=== PATIENT | male | born 1930 | race Hispanic/Latino ===

== ENCOUNTER 2017-08-31 14:57 | Emergency (ER) | payer MEDICARE ==
[2017-08-31 15:19] VITALS: BMI 28.1
--- NOTE | 2017-08-31 15:30 | ED PDOC ---
Arrival/HPI - General Historian: Patient - General Chief Complaint: Altered Mental Status Time Seen by Provider: 08/31/17 15:25 - History of Present Illness Narrative History of Present Illness (Text): 08/31/17 15:27 85-year-old male presents brought in by ambulance after being found walking on the streets disoriented. Patient is alert, but appears confused and is unable to answer any questions in the emergency room. (Effie Dowell) Past Medical History - Provider Review Nursing Documentation Reviewed: Yes - Travel History Have you recently traveled outside [place] w/in the past 3 mons?: No - Tetanus Immunization Tetanus Immunization: Unknown Family/Social History - Physician Review Nursing Documentation Reviewed: Yes Family/Social History: Unknown Family HX Allergies/Home Meds Allergies/Adverse Reactions: Allergies No Known Allergies Allergy (Verified 09/01/17 07:44) Review of Systems - Review of Systems Systems not reviewed;Unavailable: Altered Mental Status Physical Exam Vital Signs Reviewed: Yes Temperature: Febrile Blood Pressure: Normal Pulse: Tachycardic Respiratory Rate: Normal Appearance: Positive for: Well-Appearing, Non-Toxic, Comfortable Pain Distress: None Mental Status: Positive for: Confused - Systems Exam Head: Present: Abrasion (abrasion to scalp) Pupils: Present: PERRL Extroacular Muscles: Present: EOMI Conjunctiva: Present: Normal Mouth: Present: Moist Mucous Membranes Neck: Present: Normal Range of Motion Respiratory/Chest: Present: Clear to Auscultation, Good Air Exchange. No: Respiratory Distress, Accessory Muscle Use Cardiovascular: Present: Regular Rate and Rhythm, Normal S1, S2. No: Murmurs Abdomen: Present: Normal Bowel Sounds. No: Tenderness, Distention, Peritoneal Signs, Rebound, Guarding Upper Extremity: Present: Normal ROM Lower Extremity: Present: Normal ROM Skin: Present: Warm, Dry Psychiatric: Present: Other (confused) Vital Signs Temp Pulse Resp BP Pulse Ox 09/01/17 06:41 99.6 F 74 18 107/40 L 95 09/01/17 05:34 62 18 122/42 L 98 09/01/17 01:55 60 18 110/42 L 98 09/01/17 00:02 63 18 114/50 L 97 08/31/17 20:58 68 18 108/49 L 98 08/31/17 19:26 89 18 133/72 96 08/31/17 17:35 100.9 F H 104 H 21 125/45 L 17 L 08/31/17 16:16 91 H 18 142/66 97 08/31/17 14:57 101.3 F H 99 H 18 143/66 97 Medical Decision Making ED Course and Treatment: 08/31/17 15:31 85-year-old male with altered mental status with fever 101.3 rectally found wandering on the streets. Tylenol given rectally. CBC wnl CMP wnl trop wnl bnp wnl lactate; 11.1 EKG shows normal sinus rhythm at [address] elevations normal axis and QTC 438 cxr; FINDINGS: LUNGS: Incompletely characterized infiltrates and perhaps volume loss left lung. PLEURA: Pleural thickening, scarring identified left pleural space only. CARDIOVASCULAR: No radiographic findings to suggest acute or significant cardiovascular disease. OSSEOUS STRUCTURES: No significant abnormalities. VISUALIZED UPPER ABDOMEN: Normal. OTHER FINDINGS: None. IMPRESSION: Left lower lobe infiltrate, of loculated pleural fluid or pleural thickening left pleural space only. case discussed with dr. bolaños; will start cefapime 2g IV and zithromax IV head ct; FINDINGS: HEMORRHAGE: No intracranial hemorrhage. BRAIN: No mass effect or edema. Cortical atrophy, periventricular small vessel disease VENTRICLES: Unremarkable. No hydrocephalus. CALVARIUM: Unremarkable. PARANASAL SINUSES: Unremarkable as visualized. No significant inflammatory changes. MASTOID AIR CELLS: Unremarkable as visualized. No inflammatory changes. OTHER FINDINGS: None. IMPRESSION: No acute intracranial abnormalities. No significant findings to account for the clinical presentation. UA: wnl 08/31/17 16:59 patients arrived at hospital; states he was with her this afternoon and then he disappeared. pt states she went looking for him but was unable to find him. name verified. i spoke with patients daughter (who is a physician)on the phone; she states 3 years ago the patient was diagnosed with dementia but never completed the work up. She states that the rest of her family is in denial about the dementia. dr. bolaños discussed the case with dr. rizzo; he would like the patient to be admitted to the hospitalist service. impression; AMS, pneumonia admit to remote tele. (Effie Dowell) 09/01/17 10:43 Patient presented to ED as "Chris Emerson" reportedly as per EMS "wandering the streets appearing confused". On initial exam, patient was not speaking to me or answering questions, although he was following commands and moving all extremities well with no signs of unstable trauma. He had no identification on his person, and he did not communicate his name or any family contacts with multiple attempts at questioning and obtaining history. Patient noted to be febrile, however bp stable, no tachycardia, no respiratory distress. Exam not consistent with sepsis. Abnormal cxr suggestive of pneumonia , however no respiratory distress. IV antibiotics initiated with close monitoring while administering as patient unable to verbalize allergies. Subsequently family presented and identified patient and further history obtained. There was also telephone communication with family. Patient at this time had been admitted to hospitalist service as he was unable to identify himself or provide PMD information. Subsequently we were able to communicate with his PMD who was agreeable to maintain admission under hospitalist service. Family updated. On re-exam, no focal neuro deficits noted although patient at time will not answer questions to specific staff members and family. Will admit for eval of fever, abnormal cxr, neuro checks. (Dora Bolaños ) - Lab Interpretations Lab Results: 08/31/17 16:15 08/31/17 16:15 Lab Results 08/31/17 16:15: Alcohol, Quantitative < 10 08/31/17 16:15: Salicylates < 1 L, Acetaminophen < 10.0 L 08/31/17 16:15: WBC 7.3, RBC 4.71, Hgb 13.5 L, Hct 41.5 L, MCV 88.1, MCH 28.7, MCHC 32.5, RDW 12.8, Plt Count 247, MPV 9.6, Gran % 82.6 H, Lymph % (Auto) 9.7 L , [place] % (Auto) 6.8 H, Eos % (Auto) 0.4 L, Baso % (Auto) 0.5, Gran # 6.02, Lymph # 0.7 L, [place] # 0.5, Eos # 0.0, Baso # 0.04 08/31/17 16:15: Sodium 140, Chloride 105, Potassium 4.3, Carbon Dioxide 27, Anion Gap 12, BUN 20, Creatinine 1.0, Est GFR ( Amer) > 60, Est GFR (Non- Af Amer) > 60, Random Glucose 117 H, Calcium 9.2, Total Bilirubin 0.3, AST 39, ALT 42, Alkaline Phosphatase 79, Lactate Dehydrogenase 417, Total Creatine Kinase 84, Troponin I < 0.01, NT-Pro-B Natriuret Pep 272, Total Protein 7.1, Albumin 4.1, Globulin 3.0, Albumin/Globulin Ratio 1.3 08/31/17 16:15: pO2 32, VBG pH 7.40, VBG pCO2 48.0, VBG HCO3 29.7 H, VBG Total CO2 31.2 H, VBG O2 Sat (Calc) 69.0 H, VBG Base Excess 4.0 H, VBG Potassium 4.3, Sodium 139.0, Chloride 106.0, Glucose 121 H, Lactate 1.1, FiO2 21.0, Venous Blood Potassium 4.3 08/31/17 16:02: Urine Color Yellow, Urine Appearance Clear, Urine pH 6.5, Ur Specific [place] >= 1.030, Urine Protein 100 H, Urine Glucose (UA) Negative, Urine Ketones Trace H, Urine Blood Negative, Urine Nitrate Negative, Urine Bilirubin Negative, Urine Urobilinogen 1.0 H, Ur Leukocyte Esterase Negative, Urine RBC Negative, Urine WBC 0 - 2, Ur Epithelial Cells 0 - 2 - RAD Interpretation Radiology Orders: 08/31/17 15:25 CHEST PORTABLE [RAD] Stat 08/31/17 15:26 HEAD W/O CONTRAST [CT] Stat - Medication Orders Current Medication Orders: Heparin Sodium (Porcine) (Heparin) 5,000 units SC Q12 [facility] PRN Reason: Protocol Last Admin: 09/01/17 01:01 Dose: Not Given Non-Admin Reason: Patient Refused Ceftriaxone Sodium (Rocephin 2 Gm Ivpb) 2 gm in 100 mls @ 100 mls/hr IVPB DAILY [facility] PRN Reason: Protocol Azithromycin (Zithromax 500mg In Ns) 500 mg in 250 mls @ 167 mls/hr IVPB DAILY [facility] PRN Reason: Protocol Pantoprazole Sodium (Protonix Inj) 40 mg IVP DAILY [facility] Last Admin: 08/31/17 17:56 Dose: 40 mg IVP Administration Document 08/31/17 17:56 SRE (Rec: 08/31/17 17:56 [id number] [id number]) Charges for Administration # of IVP Administrations 1 Discontinued Medications Acetaminophen (Tylenol 650 Mg Supp) 650 mg STAT STA Stop: 08/31/17 16:38 Last Admin: 08/31/17 17:05 Dose: 650 mg MAR Pain/Vitals Document 08/31/17 17:05 SRE (Rec: 08/31/17 17:05 SRE [id number]) Pain Reassessment Is This A Pain ReAssessment? Yes Sleep Is patient sleeping during reassessment? No Presence of Pain Presence of Pain Yes Pain Scale Used Pain Scale Used Numeric Cefepime HCl (Maxipime 2gm) 2 gm in 100 mls @ 100 mls/hr IVPB STAT [facility] PRN Reason: Protocol Stop: 08/31/17 17:27 Last Admin: 08/31/17 17:04 Dose: 100 mls/hr eMAR Start Stop Document 08/31/17 17:04 SRE (Rec: 08/31/17 17:04 SRE [id number]) Intravenous Solution Start Date 08/31/17 Start Time 16:50 End Date 08/31/17 End time 17:50 Total Infusion Time 60 Azithromycin (Zithromax 500mg In Ns) 500 mg in 250 mls @ 166.667 mls/hr IVPB STAT [facility]A PRN Reason: Protocol Stop: 08/31/17 18:30 Last Admin: 08/31/17 17:55 Dose: 166.667 mls/hr eMAR Start Stop Document 08/31/17 17:55 SRE (Rec: 08/31/17 17:56 SRE [id number]) Intravenous Solution Start Date 08/31/17 Start Time 17:55 End Date 08/31/17 End time 19:30 Total Infusion Time 95 Disposition/Present on Arrival - Present on Arrival Any Indicators Present on Arrival: No History of DVT/PE: No History of Uncontrolled Diabetes: No Urinary Catheter: No History of Decub. Ulcer: No - Disposition Have Diagnosis and Disposition been Completed?: Yes Disposition Time: 17:25 Patient Plan: Admission - Disposition Diagnosis: Pneumonia, Altered mental status Disposition: HOSPITALIZED Patient Problems: Current Active Problems Problem Status Onset Altered mental status Acute Pneumonia Acute Condition: FAIR
--- NOTE | 2017-08-31 16:12 | RAD ---
HISTORY: Altered mental status. Portable study 15:30. COMPARISON: No prior. FINDINGS: LUNGS: Incompletely characterized infiltrates and perhaps volume loss left lung. PLEURA: Pleural thickening, scarring identified left pleural space only. CARDIOVASCULAR: No radiographic findings to suggest acute or significant cardiovascular disease. OSSEOUS STRUCTURES: No significant abnormalities. VISUALIZED UPPER ABDOMEN: Normal. OTHER FINDINGS: None. IMPRESSION: Left lower lobe infiltrate, of loculated pleural fluid or pleural thickening left pleural space only.
[2017-08-31 16:17] LABS: PH,URINE 6.5 (4.7-8.0); URINE BILIRUBIN NEGATIVE (NEGATIVE); URINE BLOOD NEGATIVE (NEGATIVE); URINE GLUCOSE (UA) NEGATIVE (NEGATIVE); URINE LEUKOCYTE ESTERASE NEGATIVE Leu/uL (NEGATIVE); URINE NITRATE NEGATIVE (NEGATIVE); URINE PROTEIN 100 mg/dL (<30 mg/dL)
[2017-08-31 16:19] LABS: URINE APPEARANCE CLEAR (CLEAR); URINE COLOR YELLOW (YELLOW)
[2017-08-31] MEDS ORDERED: Cefepime IV 2 gm in NS 2 GM/100 ML BAG IVPB STA (16:28)
[2017-08-31 16:30] LABS: URINE EPITHELIAL CELLS 0 - 2 /hpf (0-5); URINE RBC NEGATIVE /hpf (0-2); URINE WBC 0 - 2 /hpf (0-6)
[2017-08-31 16:35] LABS: VENOUS BLOOD GAS PO2 32 mm/Hg (30-55)
[2017-08-31 16:39] LABS: BASO # 0.04 K/mm3 (0.0-2.0); BASO % 0.5 % (0.0-3.0); EOS % 0.4 % (1.5-5.0); GRAN # 6.02 (1.4-6.5); GRAN % 82.6 % (50.0-68.0); HEMOGLOBIN 13.5 g/dL (14.0-18.0); LYMPH # 0.7 (1.2-3.4); LYMPH % 9.7 % (22.0-35.0); MEAN CELL VOLUME 88.1 fl (80.0-105.0); MEAN CORPUSCULAR HEMOGLOBIN 28.7 pg (25.0-35.0); MEAN CORPUSCULAR HGB CONC 32.5 g/dl (31.0-37.0); MEAN PLATELET VOLUME 9.6 fl (7.0-11.0); MONO # 0.5 (0.1-0.6); MONO % 6.8 % (1.0-6.0); RBC 4.71 10^6/uL (3.5-6.1); RED CELL DISTRIBUTION WIDTH 12.8 % (11.5-14.5); WHITE BLOOD COUNT 7.3 10^3/ul (4.5-11.0)
[2017-08-31 16:46] LABS: ALB/GLOB RATIO 1.3 (1.1-1.8); ALBUMIN 4.1 g/dL (3.0-4.8); ALT/SGPT 42 U/L (7-56); AST/SGOT 39 U/L (17-59); BLOOD UREA NITROGEN 20 mg/dL (7-21); CALCIUM 9.2 mg/dL (8.4-10.5); GFR AFRICAN-AMERICAN > 60; GFR NON-AFRICAN AMERICAN > 60
[2017-08-31 16:47] LABS: ACETAMINOPHEN < 10.0 ug/ml (10.0-20.0); SALICYLATE < 1 mg/dL (2.0-20.0)
[2017-08-31 16:58] LABS: B-TYPE NATRIURETIC PEPTIDE 272 pg/mL (0-450); TROPONIN I < 0.01 ng/mL
--- NOTE | 2017-08-31 16:59 | CT ---
PROCEDURE: CT HEAD WITHOUT CONTRAST. HISTORY: Altered mental status COMPARISON: None available. TECHNIQUE: Axial computed tomography images were obtained through the head/brain without intravenous contrast. Radiation dose: Total exam DLP = 922.55 mGy-cm. This CT exam was performed using one or more of the following dose reduction techniques: Automated exposure control, adjustment of the mA and/or kV according to patient size, and/or use of iterative reconstruction technique. FINDINGS: HEMORRHAGE: No intracranial hemorrhage. BRAIN: No mass effect or edema. Cortical atrophy, periventricular small vessel disease VENTRICLES: Unremarkable. No hydrocephalus. CALVARIUM: Unremarkable. PARANASAL SINUSES: Unremarkable as visualized. No significant inflammatory changes. MASTOID AIR CELLS: Unremarkable as visualized. No inflammatory changes. OTHER FINDINGS: None. IMPRESSION: No acute intracranial abnormalities. No significant findings to account for the clinical presentation.
[2017-08-31] MEDS ORDERED: Azithromycin 500MG/NS 250ml 500 MG/250 ML BAG IVPB STA (17:01)
[2017-08-31 19:27] VITALS: RESP 18
[2017-09-01 06:04] LABS: ALB/GLOB RATIO 1.3 (1.1-1.8); ALBUMIN 3.7 g/dL (3.0-4.8); ALT/SGPT 41 U/L (7-56); AST/SGOT 34 U/L (17-59); BLOOD UREA NITROGEN 17 mg/dL (7-21); CALCIUM 9.1 mg/dL (8.4-10.5); GFR AFRICAN-AMERICAN > 60; GFR NON-AFRICAN AMERICAN > 60; MAGNESIUM 2.1 mg/dL (1.7-2.2)
[2017-09-01 06:12] LABS: BASO # 0.03 K/mm3 (0.0-2.0); BASO % 0.5 % (0.0-3.0); EOS # 0.1 (0.0-0.7); EOS % 1.6 % (1.5-5.0); GRAN # 5.02 (1.4-6.5); GRAN % 78.9 % (50.0-68.0); HEMOGLOBIN 13.5 g/dL (14.0-18.0); LYMPH # 0.5 (1.2-3.4); LYMPH % 8.3 % (22.0-35.0); MEAN CELL VOLUME 88.6 fl (80.0-105.0); MEAN CORPUSCULAR HEMOGLOBIN 28.6 pg (25.0-35.0); MEAN CORPUSCULAR HGB CONC 32.3 g/dl (31.0-37.0); MEAN PLATELET VOLUME 9.8 fl (7.0-11.0); MONO # 0.7 (0.1-0.6); MONO % 10.7 % (1.0-6.0); RBC 4.72 10^6/uL (3.5-6.1); WHITE BLOOD COUNT 6.4 10^3/ul (4.5-11.0)
[2017-09-01 06:42] VITALS: BP 107/40; PULSE 74; TEMP 99.6; O2SAT 95
--- NOTE | 2017-09-01 07:17 | CP.PCM.HP ---
<Silvia Canas - Last Filed: 09/01/17 06:57> History of Present Illness - History of Present Illness History of Present Illness: H&P for Dr Kimble: CC:disorientation 85-year-old male with no significant PMH, presents brought in by ambulance after being found walking on the streets disoriented. Patient is alert, but appears confused and is unable to answer any questions in the emergency room. at bedside, most HPI obtained from her. She states that she and her had a fight in the afternoon while at [facility]. And the patient walked away after that. She states that she has been noticing that pt has been have episodes of memory loss for past few weeks, and thinks he is having some dementia. As per , pt was in in his usual state of health with no physical complaints. Denies fever, chills, focal deficits, weakness, leg swelling. In ED, pt febrile 101.3, other vitals stable, CT head neg, CXR shows left lower lobe infiltrate, of loculated pleural fluid or thickening. Given cefepime, azithro and Tylenol. Pt seen saying a few words to the nurses. But otherwise remains somnolent to me upon questioning, following some commands. 12 ROS untobtainable due to pt not being verbal. PMH: Raynaud's, psoriasis PSH: denies All: NKA FH: HTN SH: lives with . Denies ETOH/tobacco/drugs. Walks independently. PMD Dr Munson () Present on Admission - Present on Admission Any Indicators Present on Admission: No History of DVT/PE: No History of Uncontrolled Diabetes: No Urinary Catheter: No Decubitus Ulcer Present: No Review of Systems - Review of Systems All systems: reviewed and no additional remarkable complaints except Review of Systems: per hpi Past Patient History - Infectious Disease Hx of Infectious Diseases: None - Tetanus Immunizations Tetanus Immunization: Unknown - Past Social History Smoking Status: Unknown If Ever Smoked - PSYCHIATRIC Hx Substance Use: No Meds Home Medications: Home Medication List Medication Instructions Recorded Confirmed Type Amoxicillin/Clavulanate [Augmentin 1 tab PO BID 5 Days tab 09/01/17 Rx 875 MG-125 MG] Allergies/Adverse Reactions: Allergies Allergy/AdvReac Type Severity Reaction Status Date / Time No Known Allergies Allergy Verified 09/01/17 07:44 Physical Exam - Constitutional Appears: Non-toxic, Younger Than Stated Age - Head Exam Head Exam: ATRAUMATIC, NORMOCEPHALIC - Eye Exam Eye Exam: EOMI, PERRL Pupil Exam: PERRL - ENT Exam ENT Exam: Mucous Membranes Moist - Neck Exam Neck exam: Positive for: Normal Inspection - Respiratory Exam Respiratory Exam: Clear to Auscultation Bilateral. absent: Accessory Muscle Use , Respiratory Distress - Cardiovascular Exam Cardiovascular Exam: RRR, +S1, +S2. absent: Systolic Murmur - GI/Abdominal Exam GI & Abdominal Exam: Normal Bowel Sounds - Extremities Exam Extremities exam: Negative for: calf tenderness, pedal edema - Neurological Exam Neurological exam: Alert, Oriented x3 - Psychiatric Exam Psychiatric exam: Normal Mood - Skin Skin Exam: Dry, Normal Color, Warm Results - Vital Signs Recent Vital Signs: Last Vital Signs Temp 99.6 F 09/01/17 06:41 Pulse 74 09/01/17 06:41 Resp 18 09/01/17 06:41 BP 107/40 L 09/01/17 06:41 Pulse Ox 95 09/01/17 06:41 - Labs Result Diagrams: 09/01/17 05:30 09/01/17 05:30 Labs: Laboratory Results - last 24 hr 08/31/17 08/31/17 09/01/17 18:30 18:30 05:30 WBC 6.4 RBC 4.72 Hgb 13.5 L Hct 41.8 L MCV 88.6 MCH 28.6 MCHC 32.3 RDW 13.0 Plt Count 229 MPV 9.8 Gran % 78.9 H Lymph % (Auto) 8.3 L [place] % (Auto) 10.7 H Eos % (Auto) 1.6 Baso % (Auto) 0.5 Gran # 5.02 Lymph # 0.5 L [place] # 0.7 H Eos # 0.1 Baso # 0.03 Sodium Potassium Chloride Carbon Dioxide Anion Gap BUN Creatinine Est GFR ( Amer) Est GFR (Non-Af Amer) Random Glucose Calcium Phosphorus Magnesium Total Bilirubin AST ALT Alkaline Phosphatase Ammonia 14 Total Protein Albumin Globulin Albumin/Globulin Ratio TSH 3rd Generation Influenza Typ A,B (EIA) Negative for flu a/b 09/01/17 09/01/17 05:30 05:30 WBC RBC Hgb Hct MCV MCH MCHC RDW Plt Count MPV Gran % Lymph % (Auto) [place] % (Auto) Eos % (Auto) Baso % (Auto) Gran # Lymph # [place] # Eos # Baso # Sodium 141 Potassium 4.2 Chloride 106 Carbon Dioxide 28 Anion Gap 10 BUN 17 Creatinine 1.0 Est GFR ( Amer) > 60 Est GFR (Non-Af Amer) > 60 Random Glucose 107 Calcium 9.1 Phosphorus 3.0 Magnesium 2.1 Total Bilirubin 0.4 AST 34 ALT 41 Alkaline Phosphatase 72 Ammonia Total Protein 6.6 Albumin 3.7 Globulin 2.9 Albumin/Globulin Ratio 1.3 TSH 3rd Generation 1.39 Influenza Typ A,B (EIA) Assessment & Plan - Assessment and Plan (Free Text) Assessment: 87 year old male with hx of Raynaud's, psoriasis, presents for disorientation, aphasia. In ED, pt febrile with no leukocytosis, CXR shows left lower lobe infiltrate of loculated pleural fluid or pleural thickening left pleural space: Disorientation/aphasia: 2/2 sepsis vs CVA vs thyroid abnormalities vs delirium vs worsening dementia - CT head neg - Neuro checks q2h - CXR shows left lower lobe infiltrate of loculated pleural fluid or pleural thickening left pleural space - Started on Azithro and Rocephin - Obtain UA, blood/urine cultures, procal, legionella ag, step pneumo, sputum culture - Cont to monitor - Obtain swallow eval. PPX: protonix, heparin SQ Discussed with Dr Kimble. Silvia Canas, PGY1 - Date & Time Date: 09/01/17 Time: 07:19 <Jeny Kimble - Last Filed: 09/01/17 12:24> Results - Vital Signs Recent Vital Signs: Last Vital Signs Temp 99.6 F 09/01/17 06:41 Pulse 74 09/01/17 06:41 Resp 18 09/01/17 06:41 BP 107/40 L 09/01/17 06:41 Pulse Ox 95 09/01/17 06:41 - Labs Result Diagrams: 09/01/17 05:30 09/01/17 05:30 Labs: Laboratory Results - last 24 hr 08/31/17 08/31/17 08/31/17 16:02 16:15 16:15 WBC RBC Hgb Hct MCV MCH MCHC RDW Plt Count MPV Gran % Lymph % (Auto) [place] % (Auto) Eos % (Auto) Baso % (Auto) Gran # Lymph # [place] # Eos # Baso # pO2 32 VBG pH 7.40 VBG pCO2 48.0 VBG HCO3 29.7 H VBG Total CO2 31.2 H VBG O2 Sat (Calc) 69.0 H VBG Base Excess 4.0 H VBG Potassium 4.3 Sodium 139.0 140 Chloride 106.0 105 Glucose 121 H Lactate 1.1 FiO2 21.0 Potassium 4.3 Carbon Dioxide 27 Anion Gap 12 BUN 20 Creatinine 1.0 Est GFR ( Amer) > 60 Est GFR (Non-Af Amer) > 60 Random Glucose 117 H Calcium 9.2 Phosphorus Magnesium Total Bilirubin 0.3 AST 39 ALT 42 Alkaline Phosphatase 79 Ammonia Lactate Dehydrogenase 417 Total Creatine Kinase 84 Troponin I < 0.01 NT-Pro-B Natriuret Pep 272 Total Protein 7.1 Albumin 4.1 Globulin 3.0 Albumin/Globulin Ratio 1.3 TSH 3rd Generation Venous Blood Potassium 4.3 Urine Color Yellow Urine Appearance Clear Urine pH 6.5 Ur Specific [place] >= 1.030 Urine Protein 100 H Urine Glucose (UA) Negative Urine Ketones Trace H Urine Blood Negative Urine Nitrate Negative Urine Bilirubin Negative Urine Urobilinogen 1.0 H Ur Leukocyte Esterase Negative Urine RBC Negative Urine WBC 0 - 2 Ur Epithelial Cells 0 - 2 Salicylates Urine Opiates Screen Urine Methadone Screen Acetaminophen Ur Barbiturates Screen Ur Phencyclidine Scrn Ur Amphetamines Screen U Benzodiazepines Scrn U Oth Cocaine Metabols U Cannabinoids Screen Alcohol, Quantitative Influenza Typ A,B (EIA) 08/31/17 08/31/17 08/31/17 16:15 16:15 16:15 WBC 7.3 RBC 4.71 Hgb 13.5 L Hct 41.5 L MCV 88.1 MCH 28.7 MCHC 32.5 RDW 12.8 Plt Count 247 MPV 9.6 Gran % 82.6 H Lymph % (Auto) 9.7 L [place] % (Auto) 6.8 H Eos % (Auto) 0.4 L Baso % (Auto) 0.5 Gran # 6.02 Lymph # 0.7 L [place] # 0.5 Eos # 0.0 Baso # 0.04 pO2 VBG pH VBG pCO2 VBG HCO3 VBG Total CO2 VBG O2 Sat (Calc) VBG Base Excess VBG Potassium Sodium Chloride Glucose Lactate FiO2 Potassium Carbon Dioxide Anion Gap BUN Creatinine Est GFR ( Amer) Est GFR (Non-Af Amer) Random Glucose Calcium Phosphorus Magnesium Total Bilirubin AST ALT Alkaline Phosphatase Ammonia Lactate Dehydrogenase Total Creatine Kinase Troponin I NT-Pro-B Natriuret Pep Total Protein Albumin Globulin Albumin/Globulin Ratio TSH 3rd Generation Venous Blood Potassium Urine Color Urine Appearance Urine pH Ur Specific [place] Urine Protein Urine Glucose (UA) Urine Ketones Urine Blood Urine Nitrate Urine Bilirubin Urine Urobilinogen Ur Leukocyte Esterase Urine RBC Urine WBC Ur Epithelial Cells Salicylates < 1 L Urine Opiates Screen Urine Methadone Screen Acetaminophen < 10.0 L Ur Barbiturates Screen Ur Phencyclidine Scrn Ur Amphetamines Screen U Benzodiazepines Scrn U Oth Cocaine Metabols U Cannabinoids Screen Alcohol, Quantitative < 10 Influenza Typ A,B (EIA) 08/31/17 08/31/17 09/01/17 18:30 18:30 05:30 WBC 6.4 RBC 4.72 Hgb 13.5 L Hct 41.8 L MCV 88.6 MCH 28.6 MCHC 32.3 RDW 13.0 Plt Count 229 MPV 9.8 Gran % 78.9 H Lymph % (Auto) 8.3 L [place] % (Auto) 10.7 H Eos % (Auto) 1.6 Baso % (Auto) 0.5 Gran # 5.02 Lymph # 0.5 L [place] # 0.7 H Eos # 0.1 Baso # 0.03 pO2 VBG pH VBG pCO2 VBG HCO3 VBG Total CO2 VBG O2 Sat (Calc) VBG Base Excess VBG Potassium Sodium Chloride Glucose Lactate FiO2 Potassium Carbon Dioxide Anion Gap BUN Creatinine Est GFR ( Amer) Est GFR (Non-Af Amer) Random Glucose Calcium Phosphorus Magnesium Total Bilirubin AST ALT Alkaline Phosphatase Ammonia 14 Lactate Dehydrogenase Total Creatine Kinase Troponin I NT-Pro-B Natriuret Pep Total Protein Albumin Globulin Albumin/Globulin Ratio TSH 3rd Generation Venous Blood Potassium Urine Color Urine Appearance Urine pH Ur Specific [place] Urine Protein Urine Glucose (UA) Urine Ketones Urine Blood Urine Nitrate Urine Bilirubin Urine Urobilinogen Ur Leukocyte Esterase Urine RBC Urine WBC Ur Epithelial Cells Salicylates Urine Opiates Screen Urine Methadone Screen Acetaminophen Ur Barbiturates Screen Ur Phencyclidine Scrn Ur Amphetamines Screen U Benzodiazepines Scrn U Oth Cocaine Metabols U Cannabinoids Screen Alcohol, Quantitative Influenza Typ A,B (EIA) Negative for flu a/b 09/01/17 09/01/17 09/01/17 05:30 05:30 06:54 WBC RBC Hgb Hct MCV MCH MCHC RDW Plt Count MPV Gran % Lymph % (Auto) [place] % (Auto) Eos % (Auto) Baso % (Auto) Gran # Lymph # [place] # Eos # Baso # pO2 VBG pH VBG pCO2 VBG HCO3 VBG Total CO2 VBG O2 Sat (Calc) VBG Base Excess VBG Potassium Sodium 141 Chloride 106 Glucose Lactate FiO2 Potassium 4.2 Carbon Dioxide 28 Anion Gap 10 BUN 17 Creatinine 1.0 Est GFR ( Amer) > 60 Est GFR (Non-Af Amer) > 60 Random Glucose 107 Calcium 9.1 Phosphorus 3.0 Magnesium 2.1 Total Bilirubin 0.4 AST 34 ALT 41 Alkaline Phosphatase 72 Ammonia Lactate Dehydrogenase Total Creatine Kinase Troponin I NT-Pro-B Natriuret Pep Total Protein 6.6 Albumin 3.7 Globulin 2.9 Albumin/Globulin Ratio 1.3 TSH 3rd Generation 1.39 Venous Blood Potassium Urine Color Urine Appearance Urine pH Ur Specific [place] Urine Protein Urine Glucose (UA) Urine Ketones Urine Blood Urine Nitrate Urine Bilirubin Urine Urobilinogen Ur Leukocyte Esterase Urine RBC Urine WBC Ur Epithelial Cells Salicylates Urine Opiates Screen Negative Urine Methadone Screen Negative Acetaminophen Ur Barbiturates Screen No result Ur Phencyclidine Scrn Negative Ur Amphetamines Screen Negative U Benzodiazepines Scrn Negative U Oth Cocaine Metabols Negative U Cannabinoids Screen Negative Alcohol, Quantitative Influenza Typ A,B (EIA) Attending/Attestation - Attestation I have personally seen and examined this patient.: Yes I have fully participated in the care of the patient.: Yes I have reviewed all pertinent clinical information: Yes Notes (Text): 09/01/17 12:18 Patient was seen and examined in ER, discussed with medical technicians on at 5.50 pm 87 yrs old male was admitted with history of change of mental status, patient was found to be febrile, Chest X rays showed pneumonia.Patient is not Aphasic as he is able to talk , however was trying not to talk infront of his .There is no focal deficit.Patient CT scan of head is negative.He is on room air.We will check for influenza .We will start patient on IV antibiotic s Rocephin and Azithromycin.We will follow up cultures.We will monitor neuro check. Management plan was discussed in detail with patient in detail Education was provided. 09/01/17 12:23 09/01/17 12:23
[2017-09-01 07:31] LABS: BENZODIAZEPINES, UR NEGATIVE (NEGATIVE); OPIATES, UR NEGATIVE (NEGATIVE); PHENCYCLIDINE, UR NEGATIVE (NEGATIVE)
[2017-09-01] MEDS ORDERED: cefTRIAXone 2 GM IN NS 2 GM/100 ML BAG IVPB SCH (10:00)
[2017-09-01] MEDS ORDERED: Azithromycin 500MG/NS 250ml 500 MG/250 ML BAG IVPB SCH (10:00)
--- NOTE | 2017-09-01 13:28 | CP.PCM.DIS ---
<Abbe Gonzalez - Last Filed: 09/01/17 13:11> Provider - Provider Primary care physician: Marco Munson JD, MD Time Spent in preparation of Discharge (in minutes): 45 Diagnosis - Discharge Diagnosis (1) Pneumonia Status: Chronic Priority: Medium (2) Altered mental status Status: Acute Hospital Course - Lab Results Lab Results: Most Recent Lab Values WBC 6.4 10^3/ul (4.5-11.0) 09/01/17 05:30 RBC 4.72 10^6/uL (3.5-6.1) 09/01/17 05:30 Hgb 13.5 g/dL (14.0-18.0) L 09/01/17 05:30 Hct 41.8 % (42.0-52.0) L 09/01/17 05:30 MCV 88.6 fl (80.0-105.0) 09/01/17 05:30 MCH 28.6 pg (25.0-35.0) 09/01/17 05:30 MCHC 32.3 g/dl (31.0-37.0) 09/01/17 05:30 RDW 13.0 % (11.5-14.5) 09/01/17 05:30 Plt Count 229 10^3/uL (120.0-450.0) 09/01/17 05:30 MPV 9.8 fl (7.0-11.0) 09/01/17 05:30 Gran % 78.9 % (50.0-68.0) H 09/01/17 05:30 Lymph % (Auto) 8.3 % (22.0-35.0) L 09/01/17 05:30 Hendricks % (Auto) 10.7 % (1.0-6.0) H 09/01/17 05:30 Eos % (Auto) 1.6 % (1.5-5.0) 09/01/17 05:30 Baso % (Auto) 0.5 % (0.0-3.0) 09/01/17 05:30 Gran # 5.02 (1.4-6.5) 09/01/17 05:30 Lymph # 0.5 (1.2-3.4) L 09/01/17 05:30 Hendricks # 0.7 (0.1-0.6) H 09/01/17 05:30 Eos # 0.1 (0.0-0.7) 09/01/17 05:30 Baso # 0.03 K/mm3 (0.0-2.0) 09/01/17 05:30 pO2 32 mm/Hg (30-55) 08/31/17 16:15 VBG pH 7.40 (7.32-7.43) 08/31/17 16:15 VBG pCO2 48.0 (40-60) 08/31/17 16:15 VBG HCO3 29.7 mmol/l (21-28) H 08/31/17 16:15 VBG Total CO2 31.2 mmol.L (22-28) H 08/31/17 16:15 VBG O2 Sat (Calc) 69.0 % (40-65) H 08/31/17 16:15 VBG Base Excess 4.0 mmol/L (0.0-2.0) H 08/31/17 16:15 VBG Potassium 4.3 mmol/L (3.6-5.2) 08/31/17 16:15 Sodium 139.0 mmol/L (132-148) 08/31/17 16:15 Chloride 106.0 mmol/L (98-107) 08/31/17 16:15 Glucose 121 mg/dl (75-110) H 08/31/17 16:15 Lactate 1.1 mmol/L (0.7-2.1) 08/31/17 16:15 FiO2 21.0 % 08/31/17 16:15 Sodium 141 mmol/L (132-148) 09/01/17 05:30 Potassium 4.2 mmol/L (3.6-5.0) 09/01/17 05:30 Chloride 106 mmol/L (98-107) 09/01/17 05:30 Carbon Dioxide 28 mmol/L (21-33) 09/01/17 05:30 Anion Gap 10 (10-20) 09/01/17 05:30 BUN 17 mg/dL (7-21) 09/01/17 05:30 Creatinine 1.0 mg/dl (0.8-1.5) 09/01/17 05:30 Est GFR ( Amer) > 60 09/01/17 05:30 Est GFR (Non-Af Amer) > 60 09/01/17 05:30 Random Glucose 107 mg/dL (70-110) 09/01/17 05:30 Calcium 9.1 mg/dL (8.4-10.5) 09/01/17 05:30 Phosphorus 3.0 mg/dL (2.5-4.5) 09/01/17 05:30 Magnesium 2.1 mg/dL (1.7-2.2) 09/01/17 05:30 Total Bilirubin 0.4 mg/dL (0.2-1.3) 09/01/17 05:30 AST 34 U/L (17-59) 09/01/17 05:30 ALT 41 U/L (7-56) 09/01/17 05:30 Alkaline Phosphatase 72 U/L (38-126) 09/01/17 05:30 Ammonia 14 umol/L (9-33) 08/31/17 18:30 Lactate Dehydrogenase 417 U/L (333-699) 08/31/17 16:15 Total Creatine Kinase 84 U/L (35-230) 08/31/17 16:15 Troponin I < 0.01 ng/mL 08/31/17 16:15 NT-Pro-B Natriuret Pep 272 pg/mL (0-450) 08/31/17 16:15 Total Protein 6.6 g/dL (5.8-8.3) 09/01/17 05:30 Albumin 3.7 g/dL (3.0-4.8) 09/01/17 05:30 Globulin 2.9 gm/dL 09/01/17 05:30 Albumin/Globulin Ratio 1.3 (1.1-1.8) 09/01/17 05:30 TSH 3rd Generation 1.39 mIU/mL (0.46-4.68) 09/01/17 05:30 Venous Blood Potassium 4.3 mmol/L (3.6-5.2) 08/31/17 16:15 Urine Color Yellow (YELLOW) 08/31/17 16:02 Urine Appearance Clear (CLEAR) 08/31/17 16:02 Urine pH 6.5 (4.7-8.0) 08/31/17 16:02 Ur Specific Emmet >= 1.030 (1.005-1.035) 08/31/17 16:02 Urine Protein 100 mg/dL (<30 mg/dL) H 08/31/17 16:02 Urine Glucose (UA) Negative mg/dL (NEGATIVE) 08/31/17 16:02 Urine Ketones Trace mg/dL (NEGATIVE) H 08/31/17 16:02 Urine Blood Negative (NEGATIVE) 08/31/17 16:02 Urine Nitrate Negative (NEGATIVE) 08/31/17 16:02 Urine Bilirubin Negative (NEGATIVE) 08/31/17 16:02 Urine Urobilinogen 1.0 E.U./dL (<1 E.U./dL) H 08/31/17 16:02 Ur Leukocyte Esterase Negative Rachel/uL (NEGATIVE) 08/31/17 16:02 Urine RBC Negative /hpf (0-2) 08/31/17 16:02 Urine WBC 0 - 2 /hpf (0-6) 08/31/17 16:02 Ur Epithelial Cells 0 - 2 /hpf (0-5) 08/31/17 16:02 Salicylates < 1 mg/dL (2.0-20.0) L 08/31/17 16:15 Urine Opiates Screen Negative (NEGATIVE) 09/01/17 06:54 Urine Methadone Screen Negative (NEGATIVE) 09/01/17 06:54 Acetaminophen < 10.0 ug/ml (10.0-20.0) L 08/31/17 16:15 Ur Barbiturates Screen No result (NEGATIVE) 09/01/17 06:54 Ur Phencyclidine Scrn Negative (NEGATIVE) 09/01/17 06:54 Ur Amphetamines Screen Negative (NEGATIVE) 09/01/17 06:54 U Benzodiazepines Scrn Negative (NEGATIVE) 09/01/17 06:54 U Oth Cocaine Metabols Negative (NEGATIVE) 09/01/17 06:54 U Cannabinoids Screen Negative (NEGATIVE) 09/01/17 06:54 Alcohol, Quantitative < 10 mg/dL (0-10) 08/31/17 16:15 Influenza Typ A,B (EIA) Negative for flu a/b (NEGATIVE) 08/31/17 18:30 Ur L.pneumophila Ag Negative (NEGATIVE) 09/01/17 06:54 - Hospital Course Hospital Course: Patient is a 87 year old male with hx of Raynaud's, psoriasis, who was admitted for evaluation and treatment for disorientation and aphasia. With the use of physical examinations, lab work, and imaging the patient was diagnosed with and treated for pneumonia. As per family the patient's mental status and aphasia returned to baseline. There were no focal neurological deficits. During their hospital stay the patient underwent a chest x-ray and head CT which were reviewed, appreciated, and utilized in the management of the patients clinical course. The chest xray showed left lower lobe infiltrate and the CT showed no acute intracranial abnormalities. Patient was treated with antibiotics amongst other empiric/therapeutic medications. At this time the patient is medically stable for discharge. Patient understands and appreciates discharge plan. Patient instructed to follow up with primary care physician within three to five days from discharge. Furthermore, the patient is instructed to take medications as prescribed and to return to the emergency room for evaluation of intractable headache, fever, chills, dizziness, chest pain, shortness of breath , abdominal pain, nausea, vomiting, diarrhea, constipation, and urinary symptoms. This is a brief summary of the patients hospital course. Please see patient chart for full details. Discharge Exam - Head Exam Head Exam: ATRAUMATIC, NORMOCEPHALIC - Additional Findings Additional findings: - Constitutional Appears: Non-toxic, Younger Than Stated Age - Head Exam Head Exam: ATRAUMATIC, NORMOCEPHALIC - Eye Exam Eye Exam: EOMI, PERRL - ENT Exam ENT Exam: Mucous Membranes Moist - Neck Exam Neck exam: Positive for: Normal Inspection - Respiratory Exam Respiratory Exam: normal breathing pattern absent: Accessory Muscle Use, Respiratory Distress - Cardiovascular Exam Cardiovascular Exam: RRR, +S1, +S2. absent: Systolic Murmur - GI/Abdominal Exam GI & Abdominal Exam: Normal Bowel Sounds - Extremities Exam Extremities exam: Negative for: calf tenderness, pedal edema - Neurological Exam Neurological exam: Alert, awake, responds to verbal stimuli, follows commands, and moves extremities past midline - Skin Skin Exam: Dry, Warm Discharge Plan - Discharge Medications Prescriptions: Amoxicillin/Clavulanate [Augmentin 875 MG-125 MG] 1 tab PO BID 5 Days tab - Follow Up Plan Condition: GOOD Disposition: HOME/ ROUTINE Instructions: Altered Mental Status (GEN) Additional Instructions: Patient Instructions: 1. Please take medications as prescribed- start augmentin. 2. Follow up with primary care physician within 3-5 days from discharge. 3. Return to emergency room for evaluation of intractable headache, fever, chills, chest pain, shortness of breath, abdominal pain, nausea, vomiting, diarrhea, constipation, and urinary symptoms. Referrals: Marco Munson JD, MD [Primary Care Provider] - <Jeny Kimble - Last Filed: 09/01/17 15:47> Provider - Provider Primary care physician: Marco Munson JD, MD Hospital Course - Lab Results Lab Results: Most Recent Lab Values WBC 6.4 10^3/ul (4.5-11.0) 09/01/17 05:30 RBC 4.72 10^6/uL (3.5-6.1) 09/01/17 05:30 Hgb 13.5 g/dL (14.0-18.0) L 09/01/17 05:30 Hct 41.8 % (42.0-52.0) L 09/01/17 05:30 MCV 88.6 fl (80.0-105.0) 09/01/17 05:30 MCH 28.6 pg (25.0-35.0) 09/01/17 05:30 MCHC 32.3 g/dl (31.0-37.0) 09/01/17 05:30 RDW 13.0 % (11.5-14.5) 09/01/17 05:30 Plt Count 229 10^3/uL (120.0-450.0) 09/01/17 05:30 MPV 9.8 fl (7.0-11.0) 09/01/17 05:30 Gran % 78.9 % (50.0-68.0) H 09/01/17 05:30 Lymph % (Auto) 8.3 % (22.0-35.0) L 09/01/17 05:30 Hendricks % (Auto) 10.7 % (1.0-6.0) H 09/01/17 05:30 Eos % (Auto) 1.6 % (1.5-5.0) 09/01/17 05:30 Baso % (Auto) 0.5 % (0.0-3.0) 09/01/17 05:30 Gran # 5.02 (1.4-6.5) 09/01/17 05:30 Lymph # 0.5 (1.2-3.4) L 09/01/17 05:30 Hendricks # 0.7 (0.1-0.6) H 09/01/17 05:30 Eos # 0.1 (0.0-0.7) 09/01/17 05:30 Baso # 0.03 K/mm3 (0.0-2.0) 09/01/17 05:30 pO2 32 mm/Hg (30-55) 08/31/17 16:15 VBG pH 7.40 (7.32-7.43) 08/31/17 16:15 VBG pCO2 48.0 (40-60) 08/31/17 16:15 VBG HCO3 29.7 mmol/l (21-28) H 08/31/17 16:15 VBG Total CO2 31.2 mmol.L (22-28) H 08/31/17 16:15 VBG O2 Sat (Calc) 69.0 % (40-65) H 08/31/17 16:15 VBG Base Excess 4.0 mmol/L (0.0-2.0) H 08/31/17 16:15 VBG Potassium 4.3 mmol/L (3.6-5.2) 08/31/17 16:15 Sodium 139.0 mmol/L (132-148) 08/31/17 16:15 Chloride 106.0 mmol/L (98-107) 08/31/17 16:15 Glucose 121 mg/dl (75-110) H 08/31/17 16:15 Lactate 1.1 mmol/L (0.7-2.1) 08/31/17 16:15 FiO2 21.0 % 08/31/17 16:15 Sodium 141 mmol/L (132-148) 09/01/17 05:30 Potassium 4.2 mmol/L (3.6-5.0) 09/01/17 05:30 Chloride 106 mmol/L (98-107) 09/01/17 05:30 Carbon Dioxide 28 mmol/L (21-33) 09/01/17 05:30 Anion Gap 10 (10-20) 09/01/17 05:30 BUN 17 mg/dL (7-21) 09/01/17 05:30 Creatinine 1.0 mg/dl (0.8-1.5) 09/01/17 05:30 Est GFR ( Amer) > 60 09/01/17 05:30 Est GFR (Non-Af Amer) > 60 09/01/17 05:30 Random Glucose 107 mg/dL (70-110) 09/01/17 05:30 Calcium 9.1 mg/dL (8.4-10.5) 09/01/17 05:30 Phosphorus 3.0 mg/dL (2.5-4.5) 09/01/17 05:30 Magnesium 2.1 mg/dL (1.7-2.2) 09/01/17 05:30 Total Bilirubin 0.4 mg/dL (0.2-1.3) 09/01/17 05:30 AST 34 U/L (17-59) 09/01/17 05:30 ALT 41 U/L (7-56) 09/01/17 05:30 Alkaline Phosphatase 72 U/L (38-126) 09/01/17 05:30 Ammonia 14 umol/L (9-33) 08/31/17 18:30 Lactate Dehydrogenase 417 U/L (333-699) 08/31/17 16:15 Total Creatine Kinase 84 U/L (35-230) 08/31/17 16:15 Troponin I < 0.01 ng/mL 08/31/17 16:15 NT-Pro-B Natriuret Pep 272 pg/mL (0-450) 08/31/17 16:15 Total Protein 6.6 g/dL (5.8-8.3) 09/01/17 05:30 Albumin 3.7 g/dL (3.0-4.8) 09/01/17 05:30 Globulin 2.9 gm/dL 09/01/17 05:30 Albumin/Globulin Ratio 1.3 (1.1-1.8) 09/01/17 05:30 TSH 3rd Generation 1.39 mIU/mL (0.46-4.68) 09/01/17 05:30 Venous Blood Potassium 4.3 mmol/L (3.6-5.2) 08/31/17 16:15 Urine Color Yellow (YELLOW) 08/31/17 16:02 Urine Appearance Clear (CLEAR) 08/31/17 16:02 Urine pH 6.5 (4.7-8.0) 08/31/17 16:02 Ur Specific Emmet >= 1.030 (1.005-1.035) 08/31/17 16:02 Urine Protein 100 mg/dL (<30 mg/dL) H 08/31/17 16:02 Urine Glucose (UA) Negative mg/dL (NEGATIVE) 08/31/17 16:02 Urine Ketones Trace mg/dL (NEGATIVE) H 08/31/17 16:02 Urine Blood Negative (NEGATIVE) 08/31/17 16:02 Urine Nitrate Negative (NEGATIVE) 08/31/17 16:02 Urine Bilirubin Negative (NEGATIVE) 08/31/17 16:02 Urine Urobilinogen 1.0 E.U./dL (<1 E.U./dL) H 08/31/17 16:02 Ur Leukocyte Esterase Negative Rachel/uL (NEGATIVE) 08/31/17 16:02 Urine RBC Negative /hpf (0-2) 08/31/17 16:02 Urine WBC 0 - 2 /hpf (0-6) 08/31/17 16:02 Ur Epithelial Cells 0 - 2 /hpf (0-5) 08/31/17 16:02 Salicylates < 1 mg/dL (2.0-20.0) L 08/31/17 16:15 Urine Opiates Screen Negative (NEGATIVE) 09/01/17 06:54 Urine Methadone Screen Negative (NEGATIVE) 09/01/17 06:54 Acetaminophen < 10.0 ug/ml (10.0-20.0) L 08/31/17 16:15 Ur Barbiturates Screen No result (NEGATIVE) 09/01/17 06:54 Ur Phencyclidine Scrn Negative (NEGATIVE) 09/01/17 06:54 Ur Amphetamines Screen Negative (NEGATIVE) 09/01/17 06:54 U Benzodiazepines Scrn Negative (NEGATIVE) 09/01/17 06:54 U Oth Cocaine Metabols Negative (NEGATIVE) 09/01/17 06:54 U Cannabinoids Screen Negative (NEGATIVE) 09/01/17 06:54 Alcohol, Quantitative < 10 mg/dL (0-10) 08/31/17 16:15 Influenza Typ A,B (EIA) Negative for flu a/b (NEGATIVE) 08/31/17 18:30 Ur L.pneumophila Ag Negative (NEGATIVE) 09/01/17 06:54 Attending/Attestation - Attestation I have personally seen and examined this patient.: Yes I have fully participated in the care of the patient.: Yes I have reviewed all pertinent clinical information, including history, physical exam and plan: Yes Notes (Text): 09/01/17 15:44 Patient was seen and examined with medical billing manager .Family is at bed side. 87 yrs old male was admitted with fever , confusion,was reluctant to talk yesterday, Patient is feeling better, he does not has any dysphasia or any focal deficit.His family is at bed side.His and daughter feels that he is at his base line.He wants to be discharged.He is on room air, ambulatory and is tolerating food.He will be discharged home on oral Augmentin and will follow up with PCP. Management plan was discussed in detail with patient and family in detail. Education was provided.
--- NOTE | 2017-09-01 18:04 | CARD ---
APPROVED REPORT EKG Measurement Heart [id number] <Conclusion> Normal sinus rhythm Left anterior fascicular block Abnormal ECG
== END 2017-09-01 12:01 | disposition home or self-care (01) ==
LOC: EDBD 14:57 → ED 14:57 → ERH 17:26 → UNDOADMIN 17:26 → MERGE 17:26 → ED 09-01 12:01
DX: J18.9 Pneumonia, unspecified organism (principal); R41.82 Altered mental status, unspecified
CPT/HCPCS: 70450; 71045; 80053; 81001; 82140; 82550; 82803; 83615; 83735; 83880; 84100; 84443; 84484; 85025; 87040; 87086; 87181; 87449; 87804; 87899; 93005; 96365; 96366; 96367; 96375; 99285; C9113; G0480; J0456; J0692

== ENCOUNTER 2017-09-05 17:03 | Emergency (ER) | payer MEDICARE ==
--- NOTE | 2017-09-05 17:34 | ED PDOC ---
Arrival/HPI - General Chief Complaint: Altered Mental Status Time Seen by Provider: 09/05/17 17:27 Historian: EMS - History of Present Illness Narrative History of Present Illness (Text): 09/05/17 17:31 An 87 year old male, with no known past medical history, is brought into the emergency department via EMS for trauma to head and right hand. The patient appears to be confused with no recollection of what happened to him. The ROS/ HPI is limited due to acuity of patient's condition. PMD: Dr. Munson Time/Duration: Other (Today) Symptom Onset: Sudden Symptom Course: Unchanged Activities at Onset: Rest, Light Context: Street Past Medical History - Provider Review Nursing Documentation Reviewed: Yes - Psychiatric Hx Substance Use: No Family/Social History - Physician Review Nursing Documentation Reviewed: Yes Family/Social History: No Known Family HX Smoking Status: Smoker Currrent Status Unknown Hx Alcohol Use: Yes Hx Substance Use: No Allergies/Home Meds Allergies/Adverse Reactions: Allergies Unobtainable Allergy (Verified 09/05/17 17:22) Home Medications: Home Meds Medication Instructions Recorded Confirmed Unobtainable 09/05/17 09/05/17 Review of Systems - Physician Review All systems were reviewed & negative as marked: Yes - Review of Systems Systems not reviewed;Unavailable: Other (Confused.) Constitutional: Other (Abrasions and contusions to face.) Musculoskeletal: Other (Abrasions and bruises to right hand) Physical Exam Vital Signs Reviewed: Yes Vital Signs Temp Pulse Resp BP Pulse Ox 09/05/17 17:42 98.0 F 94 H 18 145/71 97 Temperature: Afebrile Blood Pressure: Normal Pulse: Tachycardic Respiratory Rate: Normal Appearance: Positive for: Well-Appearing, Non-Toxic, Comfortable Pain Distress: None Mental Status: No: Alert and Oriented X 3 (Awake, Alert, and oriented to person. ) - Systems Exam Head: Present: Contusion (to the right upper face and periorbital area. ), Abrasion (to the right upper face and periorbital area. ). No: Atraumatic, Normocephalic Pupils: Present: PERRL Extroacular Muscles: Present: EOMI Conjunctiva: Present: Normal Mouth: Present: Moist Mucous Membranes Neck: Present: Normal Range of Motion Respiratory/Chest: Present: Clear to Auscultation, Good Air Exchange. No: Respiratory Distress, Accessory Muscle Use Cardiovascular: Present: Regular Rate and Rhythm, Murmurs (systolic murmur.) Abdomen: Present: Normal Bowel Sounds. No: Tenderness, Distention, Peritoneal Signs Upper Extremity: Present: Capillary Refill < 2s, Other (Abrasions to the dorsal aspect of the right hand) Lower Extremity: Present: Normal Inspection, Capillary Refill < 2 s, Other (No evidence of injury ). No: Edema Psychiatric: Present: Alert, Other (Confuser). No: Oriented x 3 (Oriented to person) Medical Decision Making ED Course and Treatment: 09/05/17 17:40 Impression: An 87 year old male is brought into the emergency department with abrasions and contusions to his head and abrasions to his right hand. Plan: -- Head CT -- Cervical Spine CT -- Right Hand X-Ray -- Reassess and disposition Progress Notes: - RAD Interpretation Radiology Orders: 09/05/17 17:34 CERVICAL SPINE W/O CONTRAST [CT] Stat HEAD W/O CONTRAST [CT] Stat HAND RIGHT 3 VIEWS [RAD] Stat - Medication Orders Current Medication Orders: Discontinued Medications Tetanus/Reduced Diphtheria/Acell Pertussis (Boostrix Vaccine Inj) 0.5 ml IM .ONCE ONE Stop: 09/05/17 19:53 - Scribe Statement The provider has reviewed the documentation as recorded by the Kerryibmayuri Gutierrez Provider Scribe Attestation: All medical record entries made by the Scribe were at my direction and personally dictated by me. I have reviewed the chart and agree that the record accurately reflects my personal performance of the history, physical exam, medical decision making, and the department course for this patient. I have also personally directed, reviewed, and agree with the discharge instructions and disposition. Disposition/Present on Arrival - Present on Arrival Any Indicators Present on Arrival: No History of DVT/PE: No History of Uncontrolled Diabetes: No Urinary Catheter: No History of Decub. Ulcer: No History Surgical Site Infection Following: None - Disposition Have Diagnosis and Disposition been Completed?: Yes Diagnosis: Head injury, Abrasion Disposition: HOME/ ROUTINE Disposition Time: 20:00 Patient Plan: Discharge Patient Problems: Current Active Problems Problem Status Onset Abrasion Acute Head injury Acute Condition: IMPROVED Additional Instructions: wash abrasions daily with soap and water. Apply bacitracin ointment daily. Referrals: Marco Munson JD, MD [Primary Care Provider] - Follow up with primary Luz Maria Gonzalez MD [Medical Doctor] - Follow up with primary Forms: [email or web address] (Austrian)
[2017-09-05 17:42] VITALS: BP 145/71; PULSE 94; RESP 18; TEMP 98; O2SAT 97
--- NOTE | 2017-09-05 19:42 | CT ---
EXAM: CT Head Without Intravenous Contrast EXAM DATE/TIME: 09/05/2017 5:34 PM CLINICAL HISTORY: The patient age is 87 years old and is male; Injury or trauma; Fall; Initial encounter; Abrasion; Head, generalized Facility exam id and description: Ct heads head w/o contrast TECHNIQUE: Axial computed tomography images of the head/brain without intravenous contrast. All CT scans at this facility use one or more dose reduction techniques, viz.: automated exposure control; ma/kV adjustment per patient size (including targeted exams where dose is matched to indication; i.e. head); or iterative reconstruction technique. Coronal and sagittal reformatted images were created and reviewed. COMPARISON: No relevant prior studies available. FINDINGS: Brain: There are periventricular foci of hypodensity, likely representing small vessel ischemic disease in a patient this age. The acuity of the white matter disease is indeterminate. The white-escalona differentiation is preserved demonstrating no acute territorial type infarct. There is moderate prominence of the ventricles and sulci, compatible with atrophy. No acute intracranial hemorrhage is seen. Midline shift: There is no midline shift. Ventricles: There is ventriculomegaly. Normal pressure hydrocephalus cannot be excluded. Bones/joints: The right nasal bone is fractured. Right preseptal and periorbital swelling/hematoma is visualized. This extends to the right frontal scalp. The calvarium demonstrates no evidence for a depressed fracture. Soft tissues: See above. Vasculature: There is atherosclerotic calcification of the cavernous internal carotid arteries and distal vertebral arteries. Sinuses: There is mild mucosal thickening of the right maxillary sinus. Mastoid air cells: No mastoid effusion. IMPRESSION: 1. No acute intracranial hemorrhage or acute territorial type infarct. 2. The right nasal bone is fractured. Right preseptal and periorbital swelling/hematoma is visualized. This extends to the right frontal scalp. A facial CT is recommended. 3. There are periventricular foci of hypodensity, likely representing small vessel ischemic disease in a patient this age. 4. Moderate atrophy. 5. There is ventriculomegaly. Normal pressure hydrocephalus cannot be excluded. 6. Incidental/non-acute findings are described above.
--- NOTE | 2017-09-05 19:49 | CT ---
EXAM: CT Cervical Spine Without Intravenous Contrast EXAM DATE/TIME: 09/05/2017 5:34 PM CLINICAL HISTORY: The patient age is 87 years old and is male; Injury or trauma; Fall; Initial encounter; Abrasion Facility exam id and description: Ct csps cervical spine w/o contrast TECHNIQUE: Axial computed tomography images of the cervical spine without intravenous contrast. All CT scans at this facility use one or more dose reduction techniques, viz.: automated exposure control; ma/kV adjustment per patient size (including targeted exams where dose is matched to indication; i.e. head); or iterative reconstruction technique. Coronal and sagittal reformatted images were created and reviewed. COMPARISON: No relevant prior studies available. FINDINGS: Vertebrae: No acute cervical spine fracture or subluxation. The cervical lordosis is straightened. There is mild levoscoliosis of the cervical spine. The facet alignment is preserved bilaterally. The occipital condyles and C1-C2 articulations appear intact. There is endplate irregularity and decreased disc height at C5-6 and C6-7. Discs/spinal canal/neural foramina: Spondylosis is visualized at multiple cervical levels. Mild narrowing of the thecal sac is visualized at C2-3, C3-4, and C5-6, with minimal narrowing of the thecal sac at C6-7. There is a small central protrusion at C4-5 with mild narrowing of the thecal sac. Right neural foraminal narrowing is identified at C4-5 and C5-6, with left neural foraminal narrowing at C5-6 and C6-7. Soft tissues: The prevertebral soft tissues appear within normal limits. Vasculature: Atherosclerotic changes are visualized. Mastoid air cells: Mild effusions are visualized within the right mastoid air cells. Lung apices: No pneumothorax. IMPRESSION: 1. No acute cervical spine fracture or subluxation. 2. The cervical lordosis is straightened. There is mild levoscoliosis of the cervical spine. 3. Spondylosis is visualized at multiple cervical levels. 4. Mild narrowing of the thecal sac is visualized at C2-3, C3-4, and C5-6, with minimal narrowing of the thecal sac at C6-7. There is a small central protrusion at C4-5 with mild narrowing of the thecal sac. This can be further evaluated with a nonemergent MRI. 5. Right neural foraminal narrowing is identified at C4-5 and C5-6, with left neural foraminal narrowing at C5-6 and C6-7. 6. Additional CT findings described above.
[2017-09-05] MEDS ORDERED: TDAP Vaccine 0.5 mL Syr IM ONE (19:52)
[2017-09-05] MEDS ORDERED: Bacitracin 500 Units/gm Oint Foilpak UD TOP STA (19:53)
--- NOTE | 2017-09-06 08:30 | RAD ---
PROCEDURE: Right Hand Radiographs. HISTORY: trauma COMPARISON: None. FINDINGS: BONES: Normal. No fracture. JOINTS: Normal. No osteoarthritic changes. SOFT TISSUES: Normal. OTHER FINDINGS: None. IMPRESSION: Normal right hand radiographs.
== END 2017-09-05 20:50 | disposition home or self-care (01) ==
LOC: ED 17:03 → MERGE 17:03 → ED 20:50
DX: S00.91XA Abrasion of unspecified part of head, initial encounter (principal); S60.511A Abrasion of right hand, initial encounter; W18.30XA Fall on same level, unspecified, initial encounter; Y92.89 Other specified places as the place of occurrence of the external cause

== ENCOUNTER 2018-07-20 21:04 | Emergency (ER) | payer MEDICARE, BC ==
[2018-07-20 21:14] VITALS: BMI 24.3
[2018-07-20 21:21] VITALS: BP 138/65; RESP 18; TEMP 97.6
--- NOTE | 2018-07-20 21:24 | ED PDOC ---
Arrival/HPI - General Historian: Patient, EMS, Police - History of Present Illness Narrative History of Present Illness (Text): 07/20/18 21:24 88 y/o male, pmh including demantia, taking care by the , found wondering around the street and chicken picker by the ambulance x 1 hour. Pt. was suppose to be inside the house watching movie while is on the 3rd floor but he ran out of the house about 1 hour ago, looking around the library and street for him, picked up by ambulance with police around 2 [address] from where he lived, called and here to pick him up. Pt. has been acting normally with eating and drinking well, no URI symptoms or fever/chills, has happened before with similar scenario as per due to the demantia. Pt. is here in the ER with FS 91, no medical or psychological complaints, pleasant, request to be discharged home and wanna to take him home now as well. Past Medical History - Provider Review Nursing Documentation Reviewed: Yes - Infectious Disease Hx of Infectious Diseases: None - Tetanus Immunization Tetanus Immunization: Unknown - Psychiatric Hx Substance Use: No - Anesthesia Hx Anesthesia: No Hx Anesthesia Reactions: No Hx Malignant Hyperthermia: No Family/Social History - Physician Review Nursing Documentation Reviewed: Yes Family/Social History: Unknown Family HX Smoking Status: Unknown If Ever Smoked Hx Alcohol Use: No Hx Substance Use: No Allergies/Home Meds Allergies/Adverse Reactions: Allergies No Known Allergies Allergy (Verified 09/01/17 07:44) Home Medications: Home Meds Medication Instructions Recorded Confirmed Unobtainable 09/05/17 09/05/17 Review of Systems - Review of Systems Systems not reviewed;Unavailable: Dementia Constitutional: absent: Fatigue, Fevers ENT: absent: Hearing Changes Respiratory: absent: SOB, Cough Cardiovascular: absent: Chest Pain Gastrointestinal: absent: Abdominal Pain, Constipation, Diarrhea, Nausea, Vomiting Musculoskeletal: absent: Back Pain, Myalgias Skin: absent: Rash, Pruritis Neurological: absent: Headache, Dizziness Psychiatric: absent: Anxiety, Depression, Suicidal Ideation Physical Exam - Systems Exam Head: Present: Atraumatic, Normocephalic. No: Tenderness, Contusion, Swelling, Ecchymosis, Abrasion, Laceration, Other Pupils: Present: PERRL Extroacular Muscles: Present: EOMI Conjunctiva: Present: Normal Ears: Present: NORMAL TM, Normal Canal. No: Erythema Mouth: Present: Moist Mucous Membranes Pharnyx: No: ERYTHEMA, EXUDATE, TONSILS ENLARGED Nose (External): Present: Atraumatic. No: Abrasion, Contusion, Laceration Nose (Internal): Present: Normal Inspection, No Active Bleeding. No: Rhinorrhea, Septal Hematoma, Epistaxis Neck: Present: Normal Range of Motion Respiratory/Chest: Present: Clear to Auscultation, Good Air Exchange. No: Respiratory Distress, Accessory Muscle Use Cardiovascular: Present: Regular Rate and Rhythm, Normal S1, S2. No: Murmurs Abdomen: No: Tenderness, Distention, Peritoneal Signs, Rebound, Guarding Back: Present: Normal Inspection Upper Extremity: Present: Normal Inspection. No: Cyanosis, Edema Lower Extremity: Present: Normal Inspection. No: Edema Neurological: Present: GCS=15, CN II-XII Intact, Speech Normal, Motor Func Gross ly Intact, Gait Normal Skin: Present: Warm, Dry, Normal Color. No: Rashes Lymphatic: No: Cervical Adenopathy Psychiatric: Present: Alert, Oriented x 3, Normal Insight, Normal Concentration Medical Decision Making ED Course and Treatment: 07/20/18 21:27 -Pt. has no medical or psychological complaint, vitally stable, request to be discharged home, will discharge home. -Discharge home with education on follow up with your own pmd within 2 days, return to the ER for any new or worsening signs or symptoms. - PA / COMPLAINTS COORDINATOR / Resident Statement / has reviewed & agrees with the documentation as recorded. Disposition/Present on Arrival - Present on Arrival Any Indicators Present on Arrival: No History of DVT/PE: No History of Uncontrolled Diabetes: No Urinary Catheter: No History of Decub. Ulcer: No History Surgical Site Infection Following: None - Disposition Have Diagnosis and Disposition been Completed?: Yes Diagnosis: General medical examination Disposition: HOME/ ROUTINE Disposition Time: :29 Patient Plan: Discharge Condition: GOOD Additional Instructions: -Discharge home with education on follow up with your own pmd within 2 days, return to the ER for any new or worsening signs or symptoms. Referrals: [facility] at [facility] – [place] [Outside] - Follow up with primary
[2018-07-20 21:33] VITALS: PULSE 65; O2SAT 97
== END 2018-07-20 21:44 | disposition home or self-care (01) ==
LOC: ED 21:04
DX: Z00.00 Encounter for general adult medical examination without abnormal findings (principal)

== ENCOUNTER 2019-01-10 16:55 | Inpatient (IN) | payer MEDICARE, BC ==
[2019-01-10 17:00] VITALS: BMI 23.7
--- NOTE | 2019-01-10 17:30 | ED PDOC ---
Arrival/HPI - General Chief Complaint: Altered Mental Status Time Seen by Provider: 01/10/19 17:08 Historian: Family - History of Present Illness Narrative History of Present Illness (Text): 01/10/19 17:42 88 year old male, with a past medical history of dementia, who presents to the emergency department BIB family, for altered mental status. Family reports patient did not sleep night last and woke up "groggy" this morning. Family endorses an episode of diarrhea and vomiting earlier today. As per family, patient at baseline has minimal communication, but states he is less responsive today and did not communicate at all. 01/10/19 19:50 Time/Duration: 24 hours Symptom Onset: Gradual Symptom Course: Unchanged Activities at Onset: Light Context: Home Past Medical History - Provider Review Nursing Documentation Reviewed: Yes - Infectious Disease Hx of Infectious Diseases: None - Tetanus Immunization Tetanus Immunization: Unknown - Pulmonary Hx Pneumonia: Yes - Neurological Hx Dementia: Yes - Psychiatric Hx Substance Use: No - Anesthesia Hx Anesthesia: No Hx Anesthesia Reactions: No Hx Malignant Hyperthermia: No Family/Social History - Physician Review Nursing Documentation Reviewed: Yes Family/Social History: Unknown Family HX Smoking Status: Unknown If Ever Smoked Hx Alcohol Use: No Hx Substance Use: No Allergies/Home Meds Allergies/Adverse Reactions: Allergies Penicillins Allergy (Verified 01/10/19 17:01) ANAPHYLAXIS Home Medications: Home Meds Medication Instructions Recorded Confirmed Multivitamin [Multivitamins] 1 each PO DAILY 01/10/19 01/10/19 Review of Systems - Physician Review All systems were reviewed & negative as marked: Yes - Review of Systems Systems not reviewed;Unavailable: Dementia Physical Exam - Physical Exam Narrative Physical Exam (Text): 01/10/19 17:39 Gen: VS reviewed, alert, well developed, well nourished, nontoxic, mild distress, Minimally responsive, lethargic Eye: Pupils equal bilaterally, pinpoint Mouth: Dry mucous membrane Neck: no JVD, supple, no adenopathy CV: regular rate, regular rhythm, no rubs,no murmur, S1, S2 Pulm: no distress, clear to auscultation, no wheeze, no rhonchi, breath sounds equal, no rales Abd: abdomen distended, soft, appears tender on right side, no guarding, no rebound, no rigidity, Ext: no edema Skin: good color, no rash, no cyanosis Psych: limited secondary to lethargy Neuro: limited secondary to lethargy Vital Signs Temp Pulse Resp Pulse Ox 01/10/19 17:15 98.9 F 70 18 97 Temperature: Afebrile Blood Pressure: Normal Pulse: Regular Finger Stick Blood Glucose: 153 Medical Decision Making ED Course and Treatment: 01/10/19 17:30 Impression: 88 year old male presents tot he emergency department BIB family for altered mental status Plan: --CT abdomen and pelvis -- Ct head -- EKG -- Labs -- Iv fluids -- US -- Urine culture -- Reassess and disposition Prior Visits: Notes and results from previous visits were reviewed. Progress Notes: 01/10/19 19:[address] rizzo. patient to be admitted for altered mentation, rule out sepsis, suspected uti vs pneumonia. brower catheter was placed as the bladder was found to be distended. the family states that the patient does not usually have a problem with voiding urine. catheter placed for urine retention. - RAD Interpretation Narrative RAD Interpretations (Text): 01/10/19 19:09 CT head reviewed by radiologist, shows: No acute intracranial abnormalities. No significant findings to account for the clinical presentation. No significant interval change compared to the prior examination(s). CT abdomen and pelvis reviewed by radiologist, shows: No acute findings related to/ accounting for the clinical presentation. Distended urinary bladder with dilatation of the collecting systems and ureters. Incomplete visualization of lingular infiltrate. Additional benign and/or incidental findings described above. 01/10/19 19:25 cxr my read: nonspecific infiltrate in the right lower lung, no ptx, no wide mediastinum Radiology Orders: 01/10/19 17:18 HEAD W/O CONTRAST [CT] Stat 01/10/19 17:26 ABDOMEN & PELVIS [ABD & PELVIS W/O PO OR IV CONT] [CT] Stat Credit Control Assistant: Radiologist - EKG Interpretation EKG Interpretation (Text): 01/10/19 19:29 ekg my read: nsr at 70 bpm, rbbb, lafb, artifact, no acute sttw abn Interpreted by ED Physician: Yes Procedures - Time-Out Type of Procedure: brower catheter insertion Physician Name: kevin - Additional Procedures Progress: brower catheter placed by myself, sterile technique, 18f, minimal bleeding, catheter passed easily, large volume of urine return, urien cloudy,patient tolerated procedure well. - Scribe Statement The provider has reviewed the documentation as recorded by the Kerryibe Asha James All medical record entries made by the Kerryibe were at my direction and personally dictated by me. I have reviewed the chart and agree that the record accurately reflects my personal performance of the history, physical exam, medical decision making, and the department course for this patient. I have also personally directed, reviewed, and agree with the discharge instructions and disposition. Disposition/Present on Arrival - Present on Arrival Any Indicators Present on Arrival: No History of DVT/PE: No History of Uncontrolled Diabetes: No Urinary Catheter: No History of Decub. Ulcer: No History Surgical Site Infection Following: None - Disposition Have Diagnosis and Disposition been Completed?: Yes Diagnosis: Altered mental status, UTI (urinary tract infection), Retention, urine Disposition: HOSPITALIZED Disposition Time: 17:30 Patient Plan: Admission Condition: GUARDED
[2019-01-10 17:47] LABS: VENOUS BLOOD GAS BASE EXCESS 0.8 mmol/L (0.0-2.0); VENOUS BLOOD GAS PO2 40 mm/Hg (30-55); VENOUS BLOOD PH 7.42 (7.32-7.43)
[2019-01-10 17:54] LABS: BASO # 0.01 K/mm3 (0.0-2.0); HEMOGLOBIN 13.8 g/dL (14.0-18.0); LYMPH # 0.8 (1.2-3.4); LYMPH % 3.8 % (22.0-35.0); MEAN CELL VOLUME 87.9 fl (80.0-105.0); MEAN CORPUSCULAR HEMOGLOBIN 27.9 pg (25.0-35.0); MEAN CORPUSCULAR HGB CONC 31.8 g/dl (31.0-37.0); MEAN PLATELET VOLUME 10.4 fl (7.0-11.0); MONO # 1.2 (0.1-0.6); MONO % 5.7 % (1.0-6.0); PLATELET COUNT 213 10^3/uL (120.0-450.0); RBC 4.94 10^6/uL (3.5-6.1); RED CELL DISTRIBUTION WIDTH 13.5 % (11.5-14.5); WHITE BLOOD COUNT 20.3 10^3/uL (4.5-11.0)
--- NOTE | 2019-01-10 18:31 | CT ---
Date of service: 01/10/2019 PROCEDURE: CT HEAD WITHOUT CONTRAST. HISTORY: altered mentation COMPARISON: 09/05/2017. TECHNIQUE: Axial computed tomography images were obtained through the head/brain without intravenous contrast. Supplemental Coronal and Sagittal projections created and reviewed. Radiation dose: Total exam DLP = 884.12 mGy-cm. This CT exam was performed using one or more of the following dose reduction techniques: Automated exposure control, adjustment of the mA and/or kV according to patient size, and/or use of iterative reconstruction technique. FINDINGS: HEMORRHAGE: No intracranial hemorrhage. BRAIN: No mass effect or edema. Cortical and cerebellar atrophy, periventricular small vessel disease. VENTRICLES: Persistent ventricular dilatation. No change CALVARIUM: Unremarkable. PARANASAL SINUSES: Unremarkable as visualized. No significant inflammatory changes. MASTOID AIR CELLS: Unremarkable as visualized. No inflammatory changes. OTHER FINDINGS: None. IMPRESSION: No acute intracranial abnormalities. No significant findings to account for the clinical presentation. No significant interval change compared to the prior examination(s).
--- NOTE | 2019-01-10 18:36 | CT ---
Date of service: 01/10/2019 PROCEDURE: CT Abdomen and Pelvis without intravenous contrast HISTORY: Abdominal distension. COMPARISON: None. TECHNIQUE: Unenhanced. Neither IV nor oral contrast administered Radiation dose: Total exam DLP = 848.15 mGy-cm. This CT exam was performed using one or more of the following dose reduction techniques: Automated exposure control, adjustment of the mA and/or kV according to patient size, and/or use of iterative reconstruction technique. FINDINGS: LOWER THORAX: Incompletely visualized lingular infiltrate. LIVER: Unremarkable. No gross lesion or ductal dilatation. GALLBLADDER AND BILE DUCTS: Unremarkable. PANCREAS: Unremarkable. No gross lesion or ductal dilatation. SPLEEN: Unremarkable. ADRENALS: Unremarkable. No mass. KIDNEYS AND URETERS: Unremarkable. No hydronephrosis. No solid mass. Mild fullness of the collecting systems likely related to marked distention of the urinary bladder. Incidental finding(s): Septated lower pole left renal cyst 3.4 x 4.4 cm. Exophytic midpole cyst 4.5 x 5.9 cm. VASCULATURE: Atherosclerotic calcification and mural plaque present. Findings are seen throughout the aorta which is non aneurysmal. BOWEL: Constipation, fecal impaction without mechanically obstructing process. Distended stomach with large air-fluid level. APPENDIX: No abnormalities to suggest acute appendicitis. No right lower quadrant inflammatory processes identified. PERITONEUM: Unremarkable. No free fluid. No free air. LYMPH NODES: Unremarkable. No enlarged lymph nodes. BLADDER: Markedly distended urinary bladder 11.5 x 12.3 x 10.3 cm. REPRODUCTIVE: Unremarkable. BONES: No acute fracture. Scoliosis, secondary degenerative change at multiple levels. OTHER FINDINGS: None. IMPRESSION: No acute findings related to/ accounting for the clinical presentation. Distended urinary bladder with dilatation of the collecting systems and ureters. Incomplete visualization of lingular infiltrate. Additional benign and/or incidental findings described above.
[2019-01-10 19:02] LABS: LYMPHOCYTE 5 % (22.0-35.0); MONOCYTE 3 % (1.0-6.0); NEUTROPHIL 92 % (50.0-70.0)
[2019-01-10] MEDS ORDERED: levoFLOXacin 750 mg in D5W 150 ML BAG IVPB STA (19:24)
--- NOTE | 2019-01-10 19:30 | CARD ---
APPROVED REPORT Date of service: 01/10/2019 EKG Measurement Heart [id number] <Conclusion> Normal sinus rhythm Right bundle branch block Left anterior fascicular block Bifascicular block Septal infarct, age undetermined Abnormal ECG
[2019-01-10 19:31] LABS: ALB/GLOB RATIO 1.5 (1.1-1.8); ALBUMIN 4.5 g/dL (3.0-4.8); CALCIUM 9.8 mg/dL (8.4-10.5)
[2019-01-10] MEDS: Potassium Chloride 20 MEQ in Dextrose 5%/0.45% NS 1,000 ML IV SCH (19:54)
[2019-01-10 20:10] LABS: URINE BILIRUBIN NEGATIVE (NEGATIVE); URINE BLOOD LARGE (NEGATIVE); URINE GLUCOSE (UA) NEGATIVE (NEGATIVE); URINE LEUKOCYTE ESTERASE NEGATIVE Leu/uL (NEGATIVE); URINE PROTEIN 30 mg/dL (<30 mg/dL); URINE UROBILINOGEN 0.2 E.U./dL (<1 E.U./dL)
[2019-01-10 20:12] LABS: URINE APPEARANCE SL CLOUDY (CLEAR); URINE COLOR YELLOW (YELLOW)
[2019-01-10 20:29] LABS: URINE BACTERIA MOD /hpf; URINE RBC TNTC /hpf (0-2); URINE WBC 15 - 20 /hpf (0-6)
[2019-01-10 22:47] LABS: VENOUS BLOOD GAS BASE EXCESS 1.5 mmol/L (0.0-2.0); VENOUS BLOOD GAS PO2 33 mm/Hg (30-55); VENOUS BLOOD PH 7.36 (7.32-7.43)
[2019-01-11 02:29] LABS: VENOUS BLOOD GAS BASE EXCESS 1.7 mmol/L (0.0-2.0); VENOUS BLOOD GAS PO2 38 mm/Hg (30-55); VENOUS BLOOD PH 7.39 (7.32-7.43)
[2019-01-11] MEDS: Potassium Chloride 20 MEQ in Dextrose 5%/0.45% NS 1,000 ML IV SCH (08:23)
--- NOTE | 2019-01-11 09:01 | RAD ---
Date of service: 01/10/2019 PROCEDURE: CHEST RADIOGRAPH, 1 VIEW HISTORY: aspiration COMPARISON: None available. FINDINGS: LUNGS: Clear. PLEURA: No pneumothorax or pleural fluid seen. CARDIOVASCULAR: Aortic calcification the heart is normal in size OSSEOUS STRUCTURES: No significant abnormalities. VISUALIZED UPPER ABDOMEN: Normal. OTHER FINDINGS: None. IMPRESSION: No active disease.
--- NOTE | 2019-01-11 14:26 | HP ---
DATE OF EXAM: 10/14/2018 HISTORY OF PRESENT ILLNESS: The patient is an 88-year-old male with past medical history of Alzheimer's disease who presented to the emergency room with increased confusion, diarrhea and vomiting. A Karimi was placed in the emergency department due to CT findings of distended bladder which showed purulent urine. The patient was empirically started on IV Levaquin and is admitted to the medical-surgical floor. PAST MEDICAL HISTORY: Includes degenerative joint disease, psoriasis and Alzheimer's disease. PAST SURGICAL HISTORY: The patient has no significant past surgical history. MEDICATIONS: There is no current medications. ALLERGIES: INCLUDE ALLERGY TO PENICILLIN WITH ANAPHYLAXIS IN THE PAST. FAMILY HISTORY: Noncontributory. SOCIAL HISTORY: The patient has no history of alcohol or tobacco abuse. He lives with his . He is independent with ADLs and requires assistance with IADLs. REVIEW OF SYSTEMS: The patient denies chest pain, shortness of breath, swelling of the legs. There is no fever. No chills. No rash. No jaundice. No melena. No bright red blood per rectum. PHYSICAL EXAMINATION: GENERAL: The patient is a well-developed male in no acute distress. VITAL SIGNS: Blood pressure 111/60, temperature 98.4, pulse 76, respiratory rate 20. HEENT: Head is normocephalic, atraumatic. Pupils equal, round, and reactive to light. Extraocular movements intact. NECK: Supple with no thyromegaly. No carotid bruit. No adenopathy. HEART: Regular rate and rhythm. LUNGS: Clear. ABDOMEN: Soft, nontender. Bowel sounds are normoactive. Indwelling Karimi is intact. Urine is slightly cloudy. EXTREMITIES: Without cyanosis, clubbing or edema. NEUROLOGIC: The patient is awake and confused without focal sensory or motor deficits. There is mild cogwheeling, slight rigidity of the upper extremities on flexion and extension bilaterally. SKIN: Warm and dry. LABORATORY DATA: WBC is 20.3, hemoglobin 13.8, hematocrit 43.4. Sodium 145, potassium 4.5, chloride 110, CO2 25, BUN 44, creatinine 1.5, glucose 151, magnesium slightly high at 2.5. Chest x-ray shows no active disease. CT scan of the head was negative for any acute bleeds or infarcts. CT scan of the abdomen and pelvis showed a distended urinary bladder with dilatation of the collecting systems and ureters. IMPRESSION: 1. Urinary retention. 2. Urinary tract infection. 3. Alzheimer's disease. 4. Degenerative joint disease. 5. Psoriasis. PLAN: The patient is admitted to the medical-surgical floor. He has received a dose of intravenous Levaquin. We will start p.o. Levaquin 500 mg daily. We will discontinue IV fluids if the patient is taking orally. We will start Flomax 0.4 mg daily and remove the Karimi voiding trial prop prior to discharge. Marco Munson JD/
[2019-01-12 06:14] LABS: BASO # 0.01 K/mm3 (0.0-2.0); BASO % 0.1 % (0.0-3.0); EOS # 0.1 (0.0-0.7); EOS % 0.3 % (1.5-5.0); HEMOGLOBIN 13.6 g/dL (14.0-18.0); LYMPH % 5.5 % (22.0-35.0); MEAN CELL VOLUME 88.6 fl (80.0-105.0); MEAN CORPUSCULAR HEMOGLOBIN 27.6 pg (25.0-35.0); MEAN CORPUSCULAR HGB CONC 31.2 g/dl (31.0-37.0); MEAN PLATELET VOLUME 10.5 fl (7.0-11.0); MONO # 1.4 (0.1-0.6); MONO % 7.9 % (1.0-6.0); RBC 4.92 10^6/uL (3.5-6.1); RED CELL DISTRIBUTION WIDTH 13.4 % (11.5-14.5); WHITE BLOOD COUNT 17.4 10^3/uL (4.5-11.0)
[2019-01-12 06:53] LABS: ALB/GLOB RATIO 1.3 (1.1-1.8); ALBUMIN 3.9 g/dL (3.0-4.8); ALT/SGPT 46 U/L (7-56); AST/SGOT 86 U/L (17-59); BLOOD UREA NITROGEN 30 mg/dL (7-21); CALCIUM 9.2 mg/dL (8.4-10.5); GFR NON-AFRICAN AMERICAN > 60
--- NOTE | 2019-01-12 09:35 | CP.PCM.PN ---
Subjective - Date & Time of Evaluation Date of Evaluation: 01/12/19 Time of Evaluation: 09:30 - Subjective Subjective: resting comfortably, NAD, confused, not agitated Objective - Vital Signs/Intake and Output Vital Signs (last 24 hours): Temp Pulse Resp BP Pulse Ox 98.2 F 60 18 157/65 H 95 01/12/19 08:16 01/12/19 08:16 01/12/19 08:16 01/12/19 08:16 01/12/19 08:16 Intake and Output: 01/12/19 01/12/19 06:59 18:59 Intake Total 0 Output Total 100 Balance -100 - Medications Medications: Current Medications Levofloxacin (Levaquin) 500 mg PO DAILY [facility]; Protocol Tamsulosin HCl (Flomax) 0.4 mg PO DAILY [facility] Last Admin: 01/11/19 12:45 Dose: 0.4 mg - Labs Labs: 01/12/19 05:00 01/12/19 05:00 - Respiratory Exam Respiratory Exam: Clear to Ausculation Bilateral, NORMAL BREATHING PATTERN - Cardiovascular Exam Cardiovascular Exam: REGULAR RHYTHM - GI/Abdominal Exam GI & Abdominal Exam: Distended, Normal Bowel Sounds - Exam Exam: Bladder Distension - Extremities Exam Extremities Exam: Normal Inspection - Neurological Exam Neurological Exam: Altered - Skin Skin Exam: Dry, Warm Assessment and Plan (1) Altered mental status Status: Chronic (2) Retention, urine Status: Acute (3) UTI (urinary tract infection) Status: Acute - Assessment and Plan (Free Text) Plan: continue Levaquin PO, check labs in am, place brower cath, urology consult
[2019-01-12] MEDS: levoFLOXacin 500 MG TAB PO SCH (10:32)
--- NOTE | 2019-01-12 18:11 | PCM.URO ---
Urology Progress Note - Objective Lab Studies: Reviewed (pt will be seen / recommend maintain brower, flomax, bowel regimen/ thanks) Lab Results Last 24 Hours: Laboratory Results - last 24 hr 01/12/19 01/12/19 05:00 05:00 WBC 17.4 H RBC 4.92 Hgb 13.6 L Hct 43.6 MCV 88.6 MCH 27.6 MCHC 31.2 RDW 13.4 Plt Count 179 MPV 10.5 Neut % (Auto) 86.2 H Lymph % (Auto) 5.5 L Schleicher % (Auto) 7.9 H Eos % (Auto) 0.3 L Baso % (Auto) 0.1 Lymph # (Auto) 1.0 L Schleicher # (Auto) 1.4 H Eos # (Auto) 0.1 Baso # (Auto) 0.01 Absolute Neuts (auto) 15.03 H Sodium 145 Potassium 3.9 Chloride 110 H Carbon Dioxide 26 Anion Gap 13 BUN 30 H Creatinine 1.1 Est GFR ( Amer) > 60 Est GFR (Non-Af Amer) > 60 Random Glucose 113 H Calcium 9.2 Total Bilirubin 0.6 AST 86 H D ALT 46 Alkaline Phosphatase 73 Total Protein 6.9 Albumin 3.9 Globulin 2.9 Albumin/Globulin Ratio 1.3 Intake & Output: Intake & Output 01/11/19 01/12/19 01/12/19 18:59 06:59 18:59 Intake Total 240 0 Output Total 100 Balance 240 -100 Intake: Oral 240 0 Output: Urine 100 Urine, Voided 100 Other: # Bowel Movements 2 Vital Signs: Vital Signs - 24 hr 01/11/19 01/12/19 01/12/19 22:00 02:00 06:00 Temperature Pulse Rate 63 58 L 59 L Respiratory Rate Blood Pressure O2 Sat by Pulse Oximetry 01/12/19 01/12/19 08:16 16:54 Temperature 98.2 F 99.3 F Pulse Rate 60 70 Respiratory 18 19 Rate Blood Pressure 157/65 H 133/66 O2 Sat by Pulse 95 76 L Oximetry
[2019-01-13 07:47] LABS: BASO # 0.02 K/mm3 (0.0-2.0); BASO % 0.2 % (0.0-3.0); EOS # 0.4 (0.0-0.7); EOS % 3.6 % (1.5-5.0); HEMOGLOBIN 12.3 g/dL (14.0-18.0); LYMPH # 1.6 (1.2-3.4); LYMPH % 14.6 % (22.0-35.0); MEAN CELL VOLUME 88.4 fl (80.0-105.0); MEAN CORPUSCULAR HEMOGLOBIN 27.3 pg (25.0-35.0); MEAN CORPUSCULAR HGB CONC 30.9 g/dl (31.0-37.0); MEAN PLATELET VOLUME 10.4 fl (7.0-11.0); MONO # 1.1 (0.1-0.6); MONO % 9.6 % (1.0-6.0); RBC 4.5 10^6/uL (3.5-6.1); RED CELL DISTRIBUTION WIDTH 13.4 % (11.5-14.5); WHITE BLOOD COUNT 11.2 10^3/uL (4.5-11.0)
[2019-01-13 08:21] LABS: ALB/GLOB RATIO 1.1 (1.1-1.8); ALBUMIN 3.2 g/dL (3.0-4.8); ALT/SGPT 39 U/L (7-56); AST/SGOT 40 U/L (17-59); BLOOD UREA NITROGEN 33 mg/dL (7-21); CALCIUM 8.9 mg/dL (8.4-10.5); GFR NON-AFRICAN AMERICAN 57
--- NOTE | 2019-01-13 09:36 | CP.PCM.PN ---
Subjective - Date & Time of Evaluation Date of Evaluation: 01/13/19 Time of Evaluation: 09:15 - Subjective Subjective: resting comfortably, NAD, confused, non-verbal Objective - Vital Signs/Intake and Output Vital Signs (last 24 hours): Temp Pulse Resp BP Pulse Ox 97.3 F L 58 L 20 133/64 96 01/13/19 06:00 01/13/19 06:00 01/13/19 06:00 01/13/19 06:00 01/13/19 06:00 Intake and Output: 01/13/19 01/13/19 06:59 18:59 Intake Total 0 Output Total 600 Balance -600 - Medications Medications: Current Medications Docusate Sodium (Colace) 100 mg PO BID [facility] Last Admin: 01/12/19 18:59 Dose: 100 mg Levofloxacin (Levaquin) 500 mg PO DAILY [facility]; Protocol Last Admin: 01/12/19 10:32 Dose: 500 mg Polyethylene Glycol (Miralax) 17 gm PO DAILY [facility] Tamsulosin HCl (Flomax) 0.4 mg PO DAILY [facility] Last Admin: 01/12/19 10:32 Dose: 0.4 mg - Labs Labs: 01/13/19 07:00 01/13/19 07:00 - Respiratory Exam Respiratory Exam: Clear to Ausculation Bilateral, NORMAL BREATHING PATTERN - Cardiovascular Exam Cardiovascular Exam: REGULAR RHYTHM - GI/Abdominal Exam GI & Abdominal Exam: Soft, Normal Bowel Sounds - Exam Additional comments: brower cath intact - clear yellow urine draining - Extremities Exam Extremities Exam: Normal Inspection - Neurological Exam Neurological Exam: Altered - Skin Skin Exam: Dry, Warm Assessment and Plan (1) Altered mental status Status: Chronic (2) Retention, urine Status: Acute (3) UTI (urinary tract infection) Status: Acute (4) Fecal impaction Status: Suspected - Assessment and Plan (Free Text) Plan: GI consult for fecal impaction, consult appreciated, PT and SW for DC planning
[2019-01-13] MEDS: levoFLOXacin 500 MG TAB PO SCH (10:25)
[2019-01-13] MEDS: POLYETHYLENE GLYCOL 3350 17 GM/Dose PACKET PO SCH (10:28)
[2019-01-13] MEDS ORDERED: NuLYTELY (NACL/NAHCO3/KCL/PEG) 4L PO ONE (12:53)
--- NOTE | 2019-01-13 16:28 | CP.PCM.CON ---
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 GI consulted for fecal impaction. Per family at bedside, patient is normally "regular" with bowel movement without any signs of bleeding. Just prior to presentation, they notice 1x episode of non-bloody, non-bilious emesis and one loose stool without bleeding. No prior endoscopic evaluations. Unable to obtain ROS due to clinical condition MHx: See above SurgHx: Denied Meds: Reviewed in chart FamHx: HTN SocHx: Denied x3, lives with All: PCN Past Patient History - Infectious Disease Hx of Infectious Diseases: None - Tetanus Immunizations Tetanus Immunization: Unknown - Past Social History Smoking Status: Unknown If Ever Smoked - PULMONARY Hx Pneumonia: Yes - NEUROLOGICAL Hx Dementia: Yes - MUSCULOSKELETAL/RHEUMATOLOGICAL Hx Arthritis: Yes - PSYCHIATRIC Hx Substance Use: No - ANESTHESIA Hx Anesthesia: No Hx Anesthesia Reactions: No Hx Malignant Hyperthermia: No Meds Allergies/Adverse Reactions: Allergies Allergy/AdvReac Type Severity Reaction Status Date / Time Penicillins Allergy ANAPHYLAXIS Verified 01/10/19 17:01 - Medications Medications: Current Medications Docusate Sodium (Colace) 100 mg PO BID [facility] Last Admin: 01/13/19 10:25 Dose: 100 mg Levofloxacin (Levaquin) 500 mg PO DAILY [facility]; Protocol Last Admin: 01/13/19 10:25 Dose: 500 mg Polyethylene Glycol (Miralax) 17 gm PO DAILY [facility] Last Admin: 01/13/19 10:28 Dose: 17 gm Sodium Cl/Sod Bicarb/Potass Cl/PEG (Nulytely With Flavor Packs Jessika) 2,000 ml PO ONCE ONE Stop: 01/14/19 10:01 Tamsulosin HCl (Flomax) 0.4 mg PO DAILY [facility] Last Admin: 01/13/19 10:25 Dose: 0.4 mg Physical Exam - Constitutional Appears: Well, No Acute Distress - Head Exam Head Exam: ATRAUMATIC, NORMAL INSPECTION - Eye Exam Eye Exam: EOMI. absent: Scleral icterus - ENT Exam ENT Exam: Mucous Membranes Moist. absent: Mucous Membranes Dry - Respiratory Exam Respiratory Exam: NORMAL BREATHING PATTERN. absent: Accessory Muscle Use - Cardiovascular Exam Cardiovascular Exam: Tachycardia, REGULAR RHYTHM - GI/Abdominal Exam GI & Abdominal Exam: Distended (mildly), Normal Bowel Sounds, Soft. absent: Br uit, Diminished Bowel Sounds, Firm, Guarding, Hernia, Organomegaly, Pulsatile Mass, Rigid, Tenderness - Extremities Exam Extremities exam: Positive for: normal inspection. Negative for: pedal edema - Neurological Exam Neurological exam: Alert Additional comments: non-verbal but pleasant - Psychiatric Exam Psychiatric exam: Normal Affect, Normal Mood - Skin Skin Exam: Normal Color, Warm Results - Vital Signs Recent Vital Signs: Last Vital Signs Temp 97.3 F L 01/13/19 07:00 Pulse 58 L 01/13/19 07:00 Resp 20 01/13/19 07:00 BP 133/64 01/13/19 07:00 Pulse Ox 96 01/13/19 07:00 - Labs Result Diagrams: 01/13/19 07:00 01/13/19 07:00 Labs: Laboratory Results - last 24 hr 01/13/19 01/13/19 07:00 07:00 WBC 11.2 H D RBC 4.50 Hgb 12.3 L Hct 39.8 L MCV 88.4 MCH 27.3 MCHC 30.9 L RDW 13.4 Plt Count 171 MPV 10.4 Neut % (Auto) 72.0 H Lymph % (Auto) 14.6 L [place] % (Auto) 9.6 H Eos % (Auto) 3.6 Baso % (Auto) 0.2 Lymph # (Auto) 1.6 [place] # (Auto) 1.1 H Eos # (Auto) 0.4 Baso # (Auto) 0.02 Absolute Neuts (auto) 8.07 H Sodium 144 Potassium 3.7 Chloride 112 H Carbon Dioxide 27 Anion Gap 9 L BUN 33 H Creatinine 1.2 Est GFR ( Amer) > 60 Est GFR (Non-Af Amer) 57 Random Glucose 100 Calcium 8.9 Total Bilirubin 0.5 AST 40 ALT 39 Alkaline Phosphatase 60 Total Protein 6.1 Albumin 3.2 Globulin 2.8 Albumin/Globulin Ratio 1.1 Assessment & Plan - Assessment and Plan (Free Text) Assessment: 88 yo WM with 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 GI consulted for fecal impaction. # Fecal Impaction: Diarrhea reported likely overflow related # Alz Dementia # No prior colonoscopy Plan: - Nulytely prep --- 2 L today --- 2 L tomorrow --- Pt already stooling after starting prep - For now, no plans for colonscopy after discussion with family - Liq diet Pt discussed with Dr. Solis; please see attestation for further recs/changes. <Lanette Solis V - Last Filed: 01/13/19 18:55> Meds - Medications Medications: Current Medications Docusate Sodium (Colace) 100 mg PO BID [facility] Last Admin: 01/13/19 10:25 Dose: 100 mg Levofloxacin (Levaquin) 500 mg PO DAILY [facility]; Protocol Last Admin: 01/13/19 10:25 Dose: 500 mg Polyethylene Glycol (Miralax) 17 gm PO DAILY [facility] Last Admin: 01/13/19 10:28 Dose: 17 gm Sodium Cl/Sod Bicarb/Potass Cl/PEG (Nulytely With Flavor Packs Jessika) 2,000 ml PO ONCE ONE Stop: 01/14/19 10:01 Tamsulosin HCl (Flomax) 0.4 mg PO DAILY [facility] Last Admin: 01/13/19 10:25 Dose: 0.4 mg Results - Vital Signs Recent Vital Signs: Last Vital Signs Temp 97.3 F L 01/13/19 07:00 Pulse 58 L 01/13/19 07:00 Resp 20 01/13/19 07:00 BP 133/64 01/13/19 07:00 Pulse Ox 96 01/13/19 07:00 - Labs Result Diagrams: 01/13/19 07:00 01/13/19 07:00 Labs: Laboratory Results - last 24 hr 01/13/19 01/13/19 07:00 07:00 WBC 11.2 H D RBC 4.50 Hgb 12.3 L Hct 39.8 L MCV 88.4 MCH 27.3 MCHC 30.9 L RDW 13.4 Plt Count 171 MPV 10.4 Neut % (Auto) 72.0 H Lymph % (Auto) 14.6 L [place] % (Auto) 9.6 H Eos % (Auto) 3.6 Baso % (Auto) 0.2 Lymph # (Auto) 1.6 [place] # (Auto) 1.1 H Eos # (Auto) 0.4 Baso # (Auto) 0.02 Absolute Neuts (auto) 8.07 H Sodium 144 Potassium 3.7 Chloride 112 H Carbon Dioxide 27 Anion Gap 9 L BUN 33 H Creatinine 1.2 Est GFR ( Amer) > 60 Est GFR (Non-Af Amer) 57 Random Glucose 100 Calcium 8.9 Total Bilirubin 0.5 AST 40 ALT 39 Alkaline Phosphatase 60 Total Protein 6.1 Albumin 3.2 Globulin 2.8 Albumin/Globulin Ratio 1.1 Attending/Attestation - Attestation I have personally seen and examined this patient.: Yes I have fully participated in the care of the patient.: Yes I have reviewed all pertinent clinical information: Yes Notes (Text): This is an addendum to the GI consultation report dictated by the fellow. The patient was seen and evaluated along with the fellow earlier. I did discuss with the patient's daughter who is also a physician, steam locomotive firer/fireman in [place] was at bedside at the time of examination. Patient has significant fecal impaction. We will start the patient on GoLYTELY in split doses. As per patient his daughter patient's mother did not have any continued medical follow-up. She is of the opinion that colonoscopy may not be appropriate. If the family makes a decision about colonoscopy this can be considered. At this at this present time patient has not been scheduled for any procedures Plan only conservative management. Will discuss with the Dr. Ambrosio 01/13/19 18:52
[2019-01-14] MEDS ORDERED: NuLYTELY (NACL/NAHCO3/KCL/PEG) 4L PO ONE (10:00)
[2019-01-14] MEDS: levoFLOXacin 500 MG TAB PO SCH (10:21)
[2019-01-14] MEDS: POLYETHYLENE GLYCOL 3350 17 GM/Dose PACKET PO SCH (10:21)
--- NOTE | 2019-01-14 15:28 | CP.PCM.PN ---
<Salinas Medina - Last Filed: 01/14/19 15:47> Subjective - Date & Time of Evaluation Date of Evaluation: 01/14/19 Time of Evaluation: 15:15 - Subjective Subjective: PGY-4 GI Fellow Prog Note Pt lying in bed when seen this AM. Family and nursing note ongoing bowel movements. Tolerating diet. Unable to obtain ROS due to advanced dementia Objective - Vital Signs/Intake and Output Vital Signs (last 24 hours): Temp Pulse Resp BP Pulse Ox 97.6 F 78 20 142/56 L 98 01/14/19 06:00 01/14/19 06:00 01/14/19 06:00 01/14/19 06:00 01/14/19 06:00 Intake and Output: 01/14/19 01/14/19 06:59 18:59 Intake Total 0 Output Total 200 Balance -200 - Medications Medications: Current Medications Docusate Sodium (Colace) 100 mg PO BID [facility] Last Admin: 01/14/19 10:20 Dose: 100 mg Levofloxacin (Levaquin) 500 mg PO DAILY [facility]; Protocol Last Admin: 01/14/19 10:21 Dose: 500 mg Polyethylene Glycol (Miralax) 17 gm PO DAILY [facility] Last Admin: 01/14/19 10:21 Dose: 17 gm Tamsulosin HCl (Flomax) 0.4 mg PO DAILY [facility] Last Admin: 01/14/19 10:21 Dose: 0.4 mg - Labs Labs: 01/13/19 07:00 01/13/19 07:00 - Constitutional Appears: No Acute Distress, Other (nonverbal, pleasant) - Head Exam Head Exam: ATRAUMATIC, NORMAL INSPECTION - Eye Exam Eye Exam: EOMI. absent: Scleral icterus - ENT Exam ENT Exam: Mucous Membranes Moist. absent: Mucous Membranes Dry - Respiratory Exam Respiratory Exam: NORMAL BREATHING PATTERN. absent: Accessory Muscle Use - GI/Abdominal Exam GI & Abdominal Exam: Distended (midly), Soft, Normal Bowel Sounds. 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 GI consulted for fecal impaction. # Fecal Impaction: Diarrhea reported likely overflow related # Alz Dementia # No prior colonoscopy Plan: - Pt with multiple BMs after starting Nulytely prep - Daily Miralax regimen - F/u Abd plain film from radiology - For now, no plans for colonoscopy after discussion with family - HH Diet Pt discussed with Dr. Solis; please see attestation for further recs/changes. <Lanette Solis V - Last Filed: 01/14/19 23:54> Objective - Vital Signs/Intake and Output Vital Signs (last 24 hours): Temp Pulse Resp BP Pulse Ox 97.4 F L 86 19 133/60 95 01/14/19 17:18 01/14/19 17:18 01/14/19 17:18 01/14/19 17:18 01/14/19 17:18 - Medications Medications: Current Medications Docusate Sodium (Colace) 100 mg PO BID [facility] Last Admin: 01/14/19 19:08 Dose: 100 mg Levofloxacin (Levaquin) 500 mg PO DAILY [facility]; Protocol Last Admin: 01/14/19 10:21 Dose: 500 mg Polyethylene Glycol (Miralax) 17 gm PO DAILY [facility] Last Admin: 01/14/19 10:21 Dose: 17 gm Tamsulosin HCl (Flomax) 0.4 mg PO DAILY [facility] Last Admin: 01/14/19 10:21 Dose: 0.4 mg - Labs Labs: 01/13/19 07:00 01/13/19 07:00 Attending/Attestation - Attestation I have personally seen and examined this patient.: Yes I have fully participated in the care of the patient.: Yes I have reviewed all pertinent clinical information, including history, physical exam and plan: Yes Notes (Text): This patient was seen and evaluated earlier. This is an addendum to the GI progress note dictated by the fellow. Discussed with the family members who patient's daughter and also who were at bedside. The patient did not do require long-term laxity. Patient still has a distended abdomen. Distended bladder. Patient would have urine retention had a Karimi placed which was removed. Status post massive fecal impaction still has not had significant bowel movement. Would consider doing another half another half a gallon of GoLYTELY in the a.m. if there is no significant bowel improvement reinserting Karimi. Other comorbidities include Alzheimer's dementia 01/14/19 23:50
--- NOTE | 2019-01-14 16:27 | RAD ---
Date of service: 01/14/2019 HISTORY: abdomen xray: brower discontinued today COMPARISON: CT scan of the abdomen and pelvis dated 01/10/2019. TECHNIQUE: 1 view obtained. FINDINGS: BOWEL: Normal. No obstruction. No free air. BONES: Degenerative changes. OTHER FINDINGS: None. IMPRESSION: No active disease.
--- NOTE | 2019-01-14 22:23 | PCM.URO ---
Urology Progress Note - Subjective Other: full note to be dictated. trial of void to follow - Objective Intake & Output: Intake & Output 01/14/19 01/14/19 01/15/19 06:59 18:59 06:59 Intake Total 0 Output Total 200 Balance -200 Intake: Oral 0 Output: Urine 200 Urine, Voided 200 Stool 0 Vital Signs: Vital Signs - 24 hr 01/14/19 01/14/19 06:00 17:18 Temperature 97.6 F 97.4 F L Pulse Rate 78 86 Respiratory 20 19 Rate Blood Pressure 142/56 L 133/60 O2 Sat by Pulse 98 95 Oximetry
[2019-01-15] MEDS ORDERED: NuLYTELY (NACL/NAHCO3/KCL/PEG) 4L PO ONE (09:00)
[2019-01-15] MEDS: POLYETHYLENE GLYCOL 3350 17 GM/Dose PACKET PO SCH (10:54)
[2019-01-15] MEDS: levoFLOXacin 500 MG TAB PO SCH (10:54)
--- NOTE | 2019-01-15 11:10 | CP.PCM.PN ---
Subjective - Date & Time of Evaluation Date of Evaluation: 01/15/19 Time of Evaluation: 11:00 - Subjective Subjective: confusion at baseline, NAD, failed voiding trial yesterday, brower cath in place Objective - Vital Signs/Intake and Output Vital Signs (last 24 hours): Temp Pulse Resp BP Pulse Ox 98.1 F 55 L 16 121/61 96 01/15/19 06:00 01/15/19 06:00 01/15/19 06:00 01/15/19 06:00 01/15/19 06:00 - Medications Medications: Current Medications Docusate Sodium (Colace) 100 mg PO BID [facility] Last Admin: 01/15/19 10:54 Dose: 100 mg Levofloxacin (Levaquin) 500 mg PO DAILY [facility]; Protocol Last Admin: 01/15/19 10:54 Dose: 500 mg Polyethylene Glycol (Miralax) 17 gm PO DAILY [facility] Last Admin: 01/15/19 10:54 Dose: 17 gm Tamsulosin HCl (Flomax) 0.4 mg PO DAILY [facility] Last Admin: 01/15/19 10:54 Dose: 0.4 mg - Labs Labs: 01/13/19 07:00 01/13/19 07:00 - Respiratory Exam Respiratory Exam: Clear to Ausculation Bilateral, NORMAL BREATHING PATTERN - Cardiovascular Exam Cardiovascular Exam: REGULAR RHYTHM - GI/Abdominal Exam GI & Abdominal Exam: Soft, Normal Bowel Sounds - Extremities Exam Extremities Exam: Normal Inspection - Neurological Exam Neurological Exam: Altered - Skin Skin Exam: Dry, Warm Assessment and Plan (1) Altered mental status Status: Chronic (2) Retention, urine Status: Acute (3) UTI (urinary tract infection) Status: Acute (4) Fecal impaction Status: Suspected - Assessment and Plan (Free Text) Plan: continue GI/ follow-up, for DC planning
--- NOTE | 2019-01-15 20:50 | CP.PCM.PN ---
<Salinas Medina - Last Filed: 01/15/19 20:47> Subjective - Date & Time of Evaluation Date of Evaluation: 01/15/19 Time of Evaluation: 08:30 - Subjective Subjective: PGY-4 GI Fellow Prog Note Pt lying in bed when seen this AM. Overnight, some small BM but retaining urine still. Unable to obtain ROS due to dementia Objective - Vital Signs/Intake and Output Vital Signs (last 24 hours): Temp Pulse Resp BP Pulse Ox 97.3 F L 67 18 152/69 H 96 01/15/19 16:56 01/15/19 16:56 01/15/19 16:56 01/15/19 16:56 01/15/19 16:56 - Medications Medications: Current Medications Docusate Sodium (Colace) 100 mg PO BID [facility] Last Admin: 01/15/19 19:14 Dose: 100 mg Levofloxacin (Levaquin) 500 mg PO DAILY [facility]; Protocol Last Admin: 01/15/19 10:54 Dose: 500 mg Polyethylene Glycol (Miralax) 17 gm PO DAILY [facility] Last Admin: 01/15/19 10:54 Dose: 17 gm Tamsulosin HCl (Flomax) 0.4 mg PO DAILY [facility] Last Admin: 01/15/19 10:54 Dose: 0.4 mg - Labs Labs: 01/13/19 07:00 01/13/19 07:00 - Constitutional Appears: Well, No Acute Distress - Head Exam Head Exam: ATRAUMATIC, NORMAL INSPECTION - ENT Exam ENT Exam: Mucous Membranes Moist. absent: Mucous Membranes Dry - Respiratory Exam Respiratory Exam: NORMAL BREATHING PATTERN. absent: Accessory Muscle Use - GI/Abdominal Exam GI & Abdominal Exam: Soft, Normal Bowel Sounds. 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 GI consulted for fecal impaction. # Fecal Impaction: Diarrhea reported likely overflow related # Alz Dementia # No prior colonoscopy Plan: - Given persistent urinary retention, concern for sig stool burden remains -> Nulytely prep 2 L again - Full Liq diet - Check BMP to optimize electrolytes - For now, no plans for colonoscopy after discussion with family Pt discussed with Dr. Irma; please see attestation for further recs/changes. <Irma,Kovil V - Last Filed: 01/15/19 23:31> Objective - Vital Signs/Intake and Output Vital Signs (last 24 hours): Temp Pulse Resp BP Pulse Ox 97.3 F L 67 18 152/69 H 96 01/15/19 16:56 01/15/19 16:56 01/15/19 16:56 01/15/19 16:56 01/15/19 16:56 Intake and Output: 01/15/19 01/16/19 18:59 06:59 Intake Total 540 Output Total 1020 Balance -480 - Medications Medications: Current Medications Docusate Sodium (Colace) 100 mg PO BID [facility] Last Admin: 01/15/19 19:14 Dose: 100 mg Levofloxacin (Levaquin) 500 mg PO DAILY [facility]; Protocol Last Admin: 01/15/19 10:54 Dose: 500 mg Polyethylene Glycol (Miralax) 17 gm PO DAILY [facility] Last Admin: 01/15/19 10:54 Dose: 17 gm Tamsulosin HCl (Flomax) 0.4 mg PO DAILY [facility] Last Admin: 01/15/19 10:54 Dose: 0.4 mg - Labs Labs: 01/13/19 07:00 01/13/19 07:00 Attending/Attestation - Attestation I have personally seen and examined this patient.: Yes I have fully participated in the care of the patient.: Yes I have reviewed all pertinent clinical information, including history, physical exam and plan: Yes Notes (Text): This is an addendum to the GI progress report dictated by the fellow. The patient was seen and evaluated along with the GI fellow earlier today. Family was at bedside. Patient has abdominal distention, history of recurrence of the urinary retention and patient had a Karimi tube replaced again. We will give another 2 L of GoLYTELY again to clean out his bowels. Patient did have significant fecal impaction. Would request for BMP to check his electrolytes. Discussed with the nursing staff and family Patient's family is not considering colonoscopy evaluation in view of this comorbidities and present medical condition they prefer conservative management. Patient need to be in a long-term MiraLAX. Family is no live out of the regimen 01/15/19 23:28
--- NOTE | 2019-01-15 23:39 | PN ---
DATE: 01/15/2019 SUBJECTIVE: So, we spoke to the nurses several times on 01/14/2019. We gave a voiding trial. The patient's after voiding trial bladder scan showed 700 mL and 900 mL, then he went to the bathroom and a few hundred mL, but eventually he was uncomfortable. We were waiting and waiting because if he would not get uncomfortable and he is able to empty his bladder even with a residual of 400 mL, we might reinsert the Karimi, but then when he became with abdominal pain, discomfort, walking around the hallways with the one-to-one that is with him, but really uncomfortable and feeling discomfort, we then decided to insert a Karimi catheter with about 1 L or more that came out. Now this is despite GI clearing him and this is despite having multiple bowel movements at this point, so the plan for urology is as follows; 1. Maintain the current Karimi. 2. GI clearance and then we will discuss further options. As mentioned in the previous note, perhaps it would be appropriate to see a visiting nurse to see if they can help maybe transit him over to the Transitional Care Unit while we are trying to figure out what is best for the patient. John Jeronimo MD
--- NOTE | 2019-01-16 01:40 | CON ---
DATE: 01/14/2019 REASON FOR CONSULTATION: For urinary tract infection, for dehydration, and for urinary retention. HISTORY OF PRESENT ILLNESS: The history is from the chart and also from the family. The is here, two daughters, and a son-in-law, and so the history is all from them. He is 88 years old. He has an indwelling Karimi catheter. He has failed a couple of voiding trials, and he now has basically been constipated and disimpacted by the GI service. Urology is requested regarding recommendations and guidelines. I initially actually received a phone call on 01/12/2019. At that time, the recommendation was to reinsert a Karimi catheter. I also spoke to the family at that time. The patient was not able to go home. He did state the cannot take care of the patient and the catheter all at home, so right now, they are staying in the hospital; see the plans listed below and see the addendum to this note. But basically, the one daughter reports that she lives in [place], but she visits her parents here often in [place] and that when she listens to him going to the bathroom, she hears a recently good force of stream. According to the , he seems to be able to go up and down the stairs okay, seems to be able to go to the bathroom, just something came up more recently. He has no prior urologic history seeing a urologist. He has some voiding dysfunction, nocturia, some frequency, intermittently some trouble, but for the most part feels like the urine just comes out okay without any specific problem. Anything that they would attribute to a difficulty at all is just "so to speak the age factor." No gross hematuria is noted. See the report from the chart. He has had imaging. No obvious abnormalities are appreciated. His baseline BUN and creatinine are noted as well. PAST MEDICAL AND SURGICAL HISTORY: As listed on the chart. A patient of Dr. Munson, he has not actually been in a long time to Dr. Munson. There are some issues there with the diagnosis about possible dementia versus other possibilities, and therefore on a regular basis, they are not seeing any doctor just now. SOCIAL HISTORY: The and live together, and she apparently is the main caregiver and provides for all his needs and apparently he is able to shop, drive, and other things. REVIEW OF SYSTEMS: Complicated because there is no chest pain or shortness of breath, but it seems like there is some times of confusion and some episodes of not coming home well, but luckily, the neighborhood is aware and helps out and that is the best sense that I get (see below from the plan, I think this is time for some social work assistance for what is available). That is not a urologic issue, it is just a general comment to put there in the chart. PHYSICAL EXAMINATION: GENERAL: A well-nourished male. He is currently actually ambulating in the jolly way. VITAL SIGNS: Noted to be relatively within normal limits. PELVIC: The Karimi catheter seems to be in place properly. Seems to be a relatively normal enlargement for prostate size. The catheter is draining clear yellow urine. RECTAL: Deferred now, I did not feel this was the right time. LABORATORY DATA: Noted. CT scans: The head CT scans are noted, the abdomen and pelvis, everything is noted from the chart and no obvious abnormalities are appreciated. DIAGNOSES: Urinary retention, urinary tract infection, constipation, and impaction. ASSESSMENT AND PLAN: I had a very long discussion with the family; really a very long discussion in a separate family consultation room with drawing pictures for the family, for the daughters, for the son-in-law; in fact actually, without the patient there to discuss really every option that I could think of as appropriate, so here is what we discussed; The possibility to maintain the current Karimi, maintain Karimi to a leg bag rather than an overnight bag, maintain the Karimi with a catheter plug, offer a suprapubic catheter and a suprapubic catheter with a plug or a bag, or the possibility even for a TURP, for a GreenLight Laser photovaporization transurethral resection of the prostate, which would require full anesthesia and need medical clearance, but that may be the patient's best chance for voiding and not having to have an indwelling Karimi catheter. My real recommendation is to consider suprapubic with a catheter plug, that gives him back to most of his freedom and he is less likely to pull it out. I am worried if we leave it in place and he gets confused that he might try to pull the catheter out of the urethra with the balloon. So after discussing this at length, the family wants to consider different options. I did discuss with them that the report that he voids with a good force of stream is very encouraging and perhaps he does not have any baseline trouble and it is just related to an infection and related to the impaction. So the next step is waiting for GI to clear him and then we will give a voiding trial. In the mean time, we have started some Flomax. We could discuss the plus/minus Flomax plus Proscar versus just Flomax alone. So what remains to be seen, I again explained swelling of the prostate as also a possibility of a problem versus just enlargement of the prostate, the difference using the example of the ankle swelling versus an enlarged ankle or muscular enlargement. All these things were discussed. Diagnoses are urinary retention, voiding dysfunction, and the urinary tract infection. The urology plan is as follows: For now, we are going to maintain the Karimi. Once GI clears the patient from their standpoint and feels that he does not need more medicine for disimpaction and to have a bowel movement, then we would plan for a voiding trial. We may even do it as early as today, tomorr, or Tuesday depending on the patient's status; tomorrow, Tuesday, Tuesday, whatever day is good for the family. In the meantime though, I do not think that the patient at this point could go home with the catheter and so we can also weigh other options. The idea of the putting a catheter in does not seem to be a possibility for her, considering it would require his cooperation. He does not seem to be interested in this either from what I can read about his situation. On a separate note, I think it would be a good idea to get Social Work involved and see what is available at home for home visiting nurse services and what other ancillary help the can receive as she is the main primary caregiver given her age, given her medical state conditions, etc., this evaluating, all this needs to be worked out and determined. Perhaps, there is somebody that can visit them once a day; this needs to be determined by insurance factors and other various factors. Then further plans can follow depending, maybe, the patient can go to transition care. From a urology standpoint, I think the best possibility for him to urinate with a reasonable flow would be a GreenLight Laser; however, that may be unsuccessful as we have no idea of the patient's baseline bladder status and this is possible that it is going on longer than is appreciated by the family. I did explain there is an overflow concept where if there is an overflow, he might have good force of stream, but it does not mean that he is generating a very strong stream from the bladder; and therefore, a GreenLight Laser may benefit the patient tremendously because it opens up the prostate and allows somebody to urinate well, but may not get the bladder empty perfectly but it may do a drastic improvement, and if nothing else, what it might do is improve the painful retention and may make it a not painful retention. A medium person may walk around with 300 mL residual, but that does not mean that, that is automatically a problem. So for now the plans are as follows; 1. Await GI clearance. 2. A trial of void. 3. Make sure we maintain the Flomax and then further plans will follow. Thank you for the Urology consult. John Jeronimo MD
[2019-01-16 07:13] LABS: BLOOD UREA NITROGEN 14 mg/dL (7-21); CALCIUM 8.6 mg/dL (8.4-10.5); GFR NON-AFRICAN AMERICAN > 60
[2019-01-16] MEDS: POLYETHYLENE GLYCOL 3350 17 GM/Dose PACKET PO SCH ×2 (10:10→17:32)
[2019-01-16] MEDS: levoFLOXacin 500 MG TAB PO SCH (10:11)
--- NOTE | 2019-01-16 10:53 | CP.PCM.PN ---
<Abbe Gonzalez - Last Filed: 01/16/19 10:45> Subjective - Date & Time of Evaluation Date of Evaluation: 01/16/19 Time of Evaluation: 09:40 - Subjective Subjective: Abbe Gonzalez Internal Medicine Resident- Progress Note on Behalf of Dr. Solis Subjective: Patient seen and examined at bedside. No acute events overnight. As per daughter at bedside the patient experienced several loose nonbloody bowel movements overnight. ROS cannot be ascertained at this time secondary to dementia Physical Examination: - Constitutional Appears: No Acute Distress - Head Exam Head Exam: ATRAUMATIC, NORMAL INSPECTION - Eye Exam Eye Exam: EOMI. absent: Scleral icterus - ENT Exam ENT Exam: Mucous Membranes Moist. absent: Mucous Membranes Dry - Respiratory Exam Respiratory Exam: NORMAL BREATHING PATTERN. absent: Accessory Muscle Use - Cardiovascular Exam Cardiovascular Exam: REGULAR RHYTHM, RRR - GI/Abdominal Exam GI & Abdominal Exam: Normal Bowel Sounds, Soft. absent: Firm, Guarding, Organomegaly, Rebound, Rigid, Tenderness - Extremities Exam Extremities exam: Positive for: normal inspection. Negative for: pedal edema - Neurological Exam Neurological exam: Alert, awake, responds to verbal stimuli, moves extremities past midline - Psychiatric Exam Psychiatric exam: Normal Affect, Normal Mood - Skin Skin Exam: Normal Color, Warm Studies Reviewed 01/12/2019 Abdominal Ultrasound- Diffuse hepatic steatosis. Minimal cholel ithiasis without sonographic evidence of acute cholecystitis. Too small to characterize left renal interpolar region 1.1 cm hypoechoic structure, which could be a cyst. 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 GI consulted for fecal impaction. Fecal Impaction- resolved Alz Dementia DJD Psoriasis - complete Nulytely prep - continue on full Liq diet now- advance diet 2 hours after nulytely completed - discontinue docusate - increase miralax 17mg PO to BID from daily - no plans for acute GI scope intervention- continue conservative management Patient seen, case discussed with and plan approved by attending physician, Dr. Solis Objective - Vital Signs/Intake and Output Vital Signs (last 24 hours): Temp Pulse Resp BP Pulse Ox 98 F 54 L 16 123/58 L 96 01/16/19 08:31 01/16/19 08:31 01/16/19 08:31 01/16/19 08:31 01/16/19 08:31 Intake and Output: 01/16/19 01/16/19 06:59 18:59 Intake Total 540 Output Total 1020 Balance -480 - Medications Medications: Current Medications Docusate Sodium (Colace) 100 mg PO BID [facility] Last Admin: 01/16/19 10:14 Dose: Not Given Levofloxacin (Levaquin) 500 mg PO DAILY [facility]; Protocol Last Admin: 01/16/19 10:11 Dose: 500 mg Polyethylene Glycol (Miralax) 17 gm PO DAILY [facility] Last Admin: 01/16/19 10:10 Dose: 17 gm Tamsulosin HCl (Flomax) 0.4 mg PO DAILY [facility] Last Admin: 01/16/19 10:11 Dose: 0.4 mg - Labs Labs: 01/13/19 07:00 01/16/19 05:30 <Lanette Solis V - Last Filed: 01/16/19 13:43> Objective - Vital Signs/Intake and Output Vital Signs (last 24 hours): Temp Pulse Resp BP Pulse Ox 98 F 54 L 16 123/58 L 96 01/16/19 08:31 01/16/19 08:31 01/16/19 08:31 01/16/19 08:31 01/16/19 08:31 Intake and Output: 01/16/19 01/16/19 06:59 18:59 Intake Total 540 Output Total 1020 Balance -480 - Medications Medications: Current Medications Levofloxacin (Levaquin) 500 mg PO DAILY [facility]; Protocol Last Admin: 01/16/19 10:11 Dose: 500 mg Polyethylene Glycol (Miralax) 17 gm PO BID [facility] Tamsulosin HCl (Flomax) 0.4 mg PO DAILY [facility] Last Admin: 01/16/19 10:11 Dose: 0.4 mg - Labs Labs: 01/13/19 07:00 01/16/19 05:30 Attending/Attestation - Attestation I have personally seen and examined this patient.: Yes I have fully participated in the care of the patient.: Yes I have reviewed all pertinent clinical information, including history, physical exam and plan: Yes Notes (Text): This patient was seen and evaluated along with the resident earlier today. Patient's and her daughter were at bedside. This is an addendum to the GI progress note dictated by the resident. Patient is now finishing the second part of his GoLYTELY prep. Patient did have massive fecal impaction is been slowly cleaned out. Patient failed trial of removing Karimi catheter probably secondary to the constipation. Discussed with the patient's family at length regarding regular laxative use in this patient with chronic constipation. We will advance the diet. Thank you Dr. Munson for allowing us to participate in the care of the patient 01/16/19 13:41
--- NOTE | 2019-01-16 13:34 | CP.PCM.PN ---
Subjective - Date & Time of Evaluation Date of Evaluation: 01/16/19 Time of Evaluation: 08:45 - Subjective Subjective: resting comfortably, NAD Objective - Vital Signs/Intake and Output Vital Signs (last 24 hours): Temp Pulse Resp BP Pulse Ox 98 F 54 L 16 123/58 L 96 01/16/19 08:31 01/16/19 08:31 01/16/19 08:31 01/16/19 08:31 01/16/19 08:31 Intake and Output: 01/16/19 01/16/19 06:59 18:59 Intake Total 540 Output Total 1020 Balance -480 - Medications Medications: Current Medications Levofloxacin (Levaquin) 500 mg PO DAILY [facility]; Protocol Last Admin: 01/16/19 10:11 Dose: 500 mg Polyethylene Glycol (Miralax) 17 gm PO BID [facility] Tamsulosin HCl (Flomax) 0.4 mg PO DAILY [facility] Last Admin: 01/16/19 10:11 Dose: 0.4 mg - Labs Labs: 01/13/19 07:00 01/16/19 05:30 Assessment and Plan (1) Altered mental status Status: Chronic (2) Retention, urine Status: Acute (3) UTI (urinary tract infection) Status: Acute (4) Fecal impaction Status: Suspected - Assessment and Plan (Free Text) Plan: /GI follow-up, voiding trial after impaction cleared, PT and SW for DC planning
--- NOTE | 2019-01-16 14:22 | PCM.URO ---
Urology Progress Note - Objective Lab Studies: Reviewed (many options full note dictated consider catheter plug) Lab Results Last 24 Hours: Laboratory Results - last 24 hr 01/16/19 05:30 Sodium 140 Potassium 3.9 Chloride 104 Carbon Dioxide 27 Anion Gap 13 BUN 14 Creatinine 0.9 Est GFR ( Amer) > 60 Est GFR (Non-Af Amer) > 60 Random Glucose 94 Calcium 8.6 Intake & Output: Intake & Output 01/15/19 01/16/19 01/16/19 18:59 06:59 18:59 Intake Total 540 Output Total 1020 Balance -480 Intake: Oral 540 Output: Urine 1020 Urine, Voided 1020 Other: # Bowel Movements 6 Vital Signs: Vital Signs - 24 hr 01/15/19 01/16/19 16:56 08:31 Temperature 97.3 F L 98 F Pulse Rate 67 54 L Respiratory 18 16 Rate Blood Pressure 152/69 H 123/58 L O2 Sat by Pulse 96 96 Oximetry
[2019-01-17 08:29] VITALS: RESP 20
--- NOTE | 2019-01-17 09:04 | CP.PCM.PN ---
Subjective - Date & Time of Evaluation Date of Evaluation: 01/17/19 Time of Evaluation: 08:40 - Subjective Subjective: confused at baseline, no chest pain, no SOB Objective - Vital Signs/Intake and Output Vital Signs (last 24 hours): Temp Pulse Resp BP Pulse Ox 98 F 54 L 20 127/63 95 01/17/19 08:28 01/17/19 08:28 01/17/19 08:28 01/17/19 08:28 01/17/19 08:28 - Medications Medications: Current Medications Levofloxacin (Levaquin) 500 mg PO DAILY [facility]; Protocol Last Admin: 01/16/19 10:11 Dose: 500 mg Polyethylene Glycol (Miralax) 17 gm PO BID [facility] Last Admin: 01/16/19 17:32 Dose: Not Given Tamsulosin HCl (Flomax) 0.4 mg PO DAILY [facility] Last Admin: 01/16/19 10:11 Dose: 0.4 mg - Labs Labs: 01/13/19 07:00 01/16/19 05:30 - Respiratory Exam Respiratory Exam: Clear to Ausculation Bilateral, NORMAL BREATHING PATTERN - Cardiovascular Exam Cardiovascular Exam: REGULAR RHYTHM - GI/Abdominal Exam GI & Abdominal Exam: Soft, Normal Bowel Sounds - Exam Additional comments: brower catheter intact, urine clear Assessment and Plan (1) Altered mental status Status: Chronic (2) Retention, urine Status: Acute (3) UTI (urinary tract infection) Status: Acute (4) Fecal impaction Status: Suspected - Assessment and Plan (Free Text) Plan: continue follow-up, ? voiding trial, family refusing to take patient home with brower catheter, SW [facility] planning
[2019-01-17] MEDS: POLYETHYLENE GLYCOL 3350 17 GM/Dose PACKET PO SCH ×2 (10:24→18:59)
[2019-01-17] MEDS: levoFLOXacin 500 MG TAB PO SCH (10:24)
--- NOTE | 2019-01-17 11:03 | CP.PCM.PN ---
<GonzalezAbbe romero - Last Filed: 01/17/19 18:00> Subjective - Date & Time of Evaluation Date of Evaluation: 01/17/19 Time of Evaluation: 10:15 - Subjective Subjective: Abbe Gonzalez Internal Medicine Resident- Progress Note on Behalf of Dr. Solis Subjective: Patient seen and examined at bedside. No acute events overnight. As per daughter at bedside, the patient has not yet experienced bowel movements overnight since stopping prep. Patient is experiencing flatus and tolerating diet. ROS cannot be ascertained at this time secondary to dementia Physical Examination: - Constitutional Appears: No Acute Distress - Head Exam Head Exam: ATRAUMATIC, NORMAL INSPECTION - Eye Exam Eye Exam: EOMI. absent: Scleral icterus - ENT Exam ENT Exam: Mucous Membranes Moist. absent: Mucous Membranes Dry - Respiratory Exam Respiratory Exam: NORMAL BREATHING PATTERN. absent: Accessory Muscle Use - Cardiovascular Exam Cardiovascular Exam: REGULAR RHYTHM, RRR - GI/Abdominal Exam GI & Abdominal Exam: Normal Bowel Sounds, Soft. absent: Firm, Guarding, Organomegaly, Rebound, Rigid, Tenderness - Extremities Exam Extremities exam: Positive for: normal inspection. Negative for: pedal edema - Neurological Exam Neurological exam: Alert, awake, responds to verbal stimuli, moves extremities past midline - Psychiatric Exam Psychiatric exam: Normal Affect, Normal Mood - Skin Skin Exam: Normal Color, Warm Studies Reviewed 01/14/2019 Abdominal ultrasound- No active disease. 01/10/2019- CT Abdomen and Pelvis without intravenous contrast- No acute findings related to/ accounting for the clinical presentation. Distended urinary bladder with dilatation of the collecting systems and ureters. 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 GI consulted for fecal impaction. Fecal Impaction- resolved Alz Dementia DJD Psoriasis - continue on heart healthy diet - continue miralax 17mg PO BID, bowel regiment education provided to the daughter - no plans for acute GI scope intervention- continue conservative management Patient seen, case discussed with and plan approved by attending physician, Dr. Solis Objective - Vital Signs/Intake and Output Vital Signs (last 24 hours): Temp Pulse Resp BP Pulse Ox 98 F 54 L 20 127/63 95 01/17/19 08:28 01/17/19 08:28 01/17/19 08:28 01/17/19 08:28 01/17/19 08:28 - Medications Medications: Current Medications Levofloxacin (Levaquin) 500 mg PO DAILY [facility]; Protocol Last Admin: 01/17/19 10:24 Dose: 500 mg Polyethylene Glycol (Miralax) 17 gm PO BID [facility] Last Admin: 01/17/19 10:24 Dose: 17 gm Tamsulosin HCl (Flomax) 0.4 mg PO DAILY [facility] Last Admin: 01/17/19 10:24 Dose: 0.4 mg - Labs Labs: 01/13/19 07:00 01/16/19 05:30 <Irma,Kovil V - Last Filed: 01/17/19 21:36> Objective - Vital Signs/Intake and Output Vital Signs (last 24 hours): Temp Pulse Resp BP Pulse Ox 97.2 F L 76 20 111/52 L 98 01/17/19 16:21 01/17/19 16:21 01/17/19 16:21 01/17/19 16:21 01/17/19 16:21 - Medications Medications: Current Medications Levofloxacin (Levaquin) 500 mg PO DAILY [facility]; Protocol Last Admin: 01/17/19 10:24 Dose: 500 mg Polyethylene Glycol (Miralax) 17 gm PO BID [facility] Last Admin: 01/17/19 18:59 Dose: 17 gm Tamsulosin HCl (Flomax) 0.4 mg PO DAILY [facility] Last Admin: 01/17/19 10:24 Dose: 0.4 mg - Labs Labs: 01/13/19 07:00 01/16/19 05:30 Attending/Attestation - Attestation I have personally seen and examined this patient.: Yes I have fully participated in the care of the patient.: Yes I have reviewed all pertinent clinical information, including history, physical exam and plan: Yes Notes (Text): This patient was seen and evaluated along with the resident earlier. There is an addendum to the GI progress report dictated by the resident. The patient's daughter was at bedside. Patient still has a Karimi. Continue the MiraLAX twice a day. Titrate the dose to keep the bowel movements 1 to 2/day. Patient has history of chronic constipation. Discussed with the patient and her daughter about the importance of titrating the dose to keep the bowels regular. Family w anted only conservative management. No invasive procedures. 01/17/19 21:35
[2019-01-17] MEDS ORDERED: risperiDONE Consta 37.5 mg/2 ml Syr IM ONE (21:00)
--- NOTE | 2019-01-18 08:55 | CP.PCM.PN ---
Subjective - Date & Time of Evaluation Date of Evaluation: 01/18/19 Time of Evaluation: 08:30 - Subjective Subjective: confused at baseline, pulled out brower cath earlier Objective - Vital Signs/Intake and Output Vital Signs (last 24 hours): Temp Pulse Resp BP Pulse Ox 97.2 F L 76 20 111/52 L 98 01/17/19 16:21 01/17/19 16:21 01/17/19 16:21 01/17/19 16:21 01/17/19 16:21 Intake and Output: 01/18/19 01/18/19 06:59 18:59 Intake Total 1080 Output Total 500 Balance 580 - Medications Medications: Current Medications Levofloxacin (Levaquin) 500 mg PO DAILY [facility]; Protocol Last Admin: 01/17/19 10:24 Dose: 500 mg Polyethylene Glycol (Miralax) 17 gm PO BID [facility] Last Admin: 01/17/19 18:59 Dose: 17 gm Tamsulosin HCl (Flomax) 0.4 mg PO DAILY [facility] Last Admin: 01/17/19 10:24 Dose: 0.4 mg - Labs Labs: 01/13/19 07:00 01/16/19 05:30 - Respiratory Exam Respiratory Exam: Clear to Ausculation Bilateral, NORMAL BREATHING PATTERN - Cardiovascular Exam Cardiovascular Exam: REGULAR RHYTHM - GI/Abdominal Exam GI & Abdominal Exam: Distended, Firm, Normal Bowel Sounds - Exam Exam: Bladder Distension - Extremities Exam Extremities Exam: Normal Inspection - Neurological Exam Neurological Exam: Altered - Skin Skin Exam: Dry, Warm Assessment and Plan (1) Altered mental status Status: Chronic (2) Retention, urine Status: Acute (3) UTI (urinary tract infection) Status: Acute (4) Fecal impaction Status: Suspected - Assessment and Plan (Free Text) Plan: /GI follow-up, for DC planning
[2019-01-18] MEDS: POLYETHYLENE GLYCOL 3350 17 GM/Dose PACKET PO SCH ×2 (09:15→18:26)
[2019-01-18] MEDS: levoFLOXacin 500 MG TAB PO SCH (09:18)
[2019-01-18] MEDS ORDERED: HYDROmorphone 0.5 mg/0.5 ml ISec SC STA (10:11)
[2019-01-18] MEDS ORDERED: HYDROmorphone 1 mg/ml ISec IVP STA (10:11)
[2019-01-18] MEDS ORDERED: HYDROmorphone 0.5 mg/0.5 ml ISec IVP STA (10:33)
[2019-01-18 17:16] LABS: ALB/GLOB RATIO 1.2 (1.1-1.8); ALBUMIN 3.5 g/dL (3.0-4.8); ALT/SGPT 30 U/L (7-56); AST/SGOT 33 U/L (17-59); BLOOD UREA NITROGEN 21 mg/dL (7-21); CALCIUM 9.1 mg/dL (8.4-10.5); GFR NON-AFRICAN AMERICAN 57
[2019-01-18 17:20] LABS: MEAN CELL VOLUME 85.7 fl (80.0-105.0); MEAN CORPUSCULAR HEMOGLOBIN 27.8 pg (25.0-35.0); MEAN CORPUSCULAR HGB CONC 32.4 g/dl (31.0-37.0); MEAN PLATELET VOLUME 9.9 fl (7.0-11.0); RBC 5.04 10^6/uL (3.5-6.1); RED CELL DISTRIBUTION WIDTH 12.9 % (11.5-14.5); WHITE BLOOD COUNT 16.4 10^3/uL (4.5-11.0)
--- NOTE | 2019-01-18 23:31 | PCM.URO ---
Urology Progress Note - Objective Lab Studies: Reviewed (multiple long discussions) Lab Results Last 24 Hours: Laboratory Results - last 24 hr 01/18/19 01/18/19 17:01 17:01 WBC 16.4 H D RBC 5.04 Hgb 14.0 Hct 43.2 MCV 85.7 MCH 27.8 MCHC 32.4 RDW 12.9 Plt Count 161 MPV 9.9 Sodium 142 Potassium 4.1 Chloride 107 Carbon Dioxide 27 Anion Gap 13 BUN 21 Creatinine 1.2 Est GFR ( Amer) > 60 Est GFR (Non-Af Amer) 57 Random Glucose 115 H Calcium 9.1 Total Bilirubin 0.4 AST 33 ALT 30 Alkaline Phosphatase 72 Total Protein 6.4 Albumin 3.5 Globulin 2.9 Albumin/Globulin Ratio 1.2 Intake & Output: Intake & Output 01/18/19 01/18/19 01/19/19 06:59 18:59 06:59 Intake Total 1080 Output Total 500 Balance 580 Intake: Oral 1080 Output: Urine 500 Urine, Voided 500 Other: # Bowel Movements 1 Vital Signs: Vital Signs - 24 hr 01/18/19 01/18/19 01/18/19 06:00 15:56 16:56 Temperature 98.2 F 100.9 F H 98.0 F Pulse Rate 86 Respiratory 20 Rate Blood Pressure 160/69 H O2 Sat by Pulse 98 Oximetry 01/18/19 17:30 Temperature 100.9 F H Pulse Rate 106 H Respiratory 20 Rate Blood Pressure 151/72 H O2 Sat by Pulse 92 L Oximetry
[2019-01-19] MEDS: levoFLOXacin 500 MG TAB PO SCH (09:50)
[2019-01-19] MEDS: POLYETHYLENE GLYCOL 3350 17 GM/Dose PACKET PO SCH ×2 (09:51→18:31)
--- NOTE | 2019-01-19 10:52 | CP.PCM.PN ---
Subjective - Date & Time of Evaluation Date of Evaluation: 01/19/19 Time of Evaluation: 10:15 - Subjective Subjective: resting comfortably, NAD Objective - Vital Signs/Intake and Output Vital Signs (last 24 hours): Temp Pulse Resp BP Pulse Ox 97.4 F L 62 20 113/51 L 94 L 01/19/19 06:00 01/19/19 06:00 01/19/19 06:00 01/19/19 06:00 01/19/19 06:00 - Medications Medications: Current Medications Levofloxacin (Levaquin) 500 mg PO DAILY [facility]; Protocol Last Admin: 01/19/19 09:50 Dose: 500 mg Polyethylene Glycol (Miralax) 17 gm PO BID [facility] Last Admin: 01/19/19 09:51 Dose: 17 gm Tamsulosin HCl (Flomax) 0.4 mg PO DAILY [facility] Last Admin: 01/19/19 09:51 Dose: 0.4 mg - Labs Labs: 01/18/19 17:01 01/18/19 17:01 - Respiratory Exam Respiratory Exam: Clear to Ausculation Bilateral, NORMAL BREATHING PATTERN - Cardiovascular Exam Cardiovascular Exam: REGULAR RHYTHM - GI/Abdominal Exam GI & Abdominal Exam: Soft, Normal Bowel Sounds - Exam Additional comments: brower cath intact - urine clear - Extremities Exam Extremities Exam: Normal Inspection - Neurological Exam Neurological Exam: Altered - Skin Skin Exam: Dry, Warm Assessment and Plan (1) Altered mental status Status: Chronic (2) Retention, urine Status: Acute (3) UTI (urinary tract infection) Status: Acute (4) Fecal impaction Status: Suspected - Assessment and Plan (Free Text) Plan: continue /GI follow-up, [facility] for DC planning, poss ILIA
[2019-01-19 17:18] VITALS: BP 126/63; PULSE 72; TEMP 98.1; O2SAT 97
[2019-01-20] MEDS: levoFLOXacin 500 MG TAB PO SCH (09:54)
[2019-01-20] MEDS: POLYETHYLENE GLYCOL 3350 17 GM/Dose PACKET PO SCH (09:55)
--- NOTE | 2019-01-21 03:11 | DS ---
HOSPITAL COURSE The patient is an 88-year-old male admitted through the emergency department on 01/10/2019 with acute urinary retention and an urinary tract infection. The patient was started on IV Levaquin and switched to p.o. Levaquin with clinical improvement. A Karimi catheter was placed. His hospital course was complicated by urethral trauma secondary to him pulling out the Karimi and recurrent urinary retention. A consultation with Urology, Dr. John Jeronimo was called. The patient was also started on Flomax 0.4 mg daily and was given MiraLax and seen by GI, Dr. Solis for fecal impaction. The patient is now currently medically stable to discharge to home. PHYSICAL EXAMINATION VITAL SIGNS: Blood pressure 126/63, temperature 98.1, pulse 72, respiratory rate 20. LUNGS: Clear. HEART: Regular rate and rhythm. ABDOMEN: Soft, nontender. Bowel sounds are normoactive. GENITALIA: Karimi catheter is intact. There was some dried blood at the urethral meatus. EXTREMITIES: Without cyanosis, clubbing or edema. NEUROLOGIC: The patient is awake and confused without focal sensory or motor deficits. SKIN: Warm and dry. IMPRESSION 1. Urinary tract infection secondary to urinary retention. 2. Urinary retention. 3. Fecal impaction. 4. Alzheimer's disease. PLAN: The patient will be discharged to home on the following medications; Flomax 0.4 mg daily, MiraLax 17 g in water or juice daily. The patient will be maintained on a heart-healthy diet. Activity is ad libitum. He will be followed as an outpatient within the next [address] John Jeronimo and it was advised to follow up in my office within the next 1 to 2 weeks as well. LUZ Kennedy MD
== END 2019-01-20 13:05 | disposition home or self-care (01) | DRG 690 ==
LOC: ED 16:55 → ERH 19:27 → 3RSO 21:42
PROVIDERS: ADMIT Internal Medicine; ATTEND Internal Medicine
PROC: 0T9B70Z Drainage of Bladder with Drainage Device, Via Natural or Artificial Opening (ICD-10-PCS; principal; 2019-01-10)
DX: N39.0 Urinary tract infection, site not specified (principal); S37.30XA Unspecified injury of urethra, initial encounter; R33.9 Retention of urine, unspecified; G30.9 Alzheimer's disease, unspecified; F02.80 Dementia in other diseases classified elsewhere, unspecified severity, without behavioral disturbance, psychotic disturbance, mood disturbance, and anxiety; R41.82 Altered mental status, unspecified; M19.90 Unspecified osteoarthritis, unspecified site; L40.9 Psoriasis, unspecified; K56.41 Fecal impaction; E86.0 Dehydration; Z82.49 Family history of ischemic heart disease and other diseases of the circulatory system; Z87.01 Personal history of pneumonia (recurrent); Z88.0 Allergy status to penicillin; Z87.892 Personal history of anaphylaxis